=== PATIENT | female | born 1970 | race Caucasian/White ===

== ENCOUNTER → 2017-05-02 | Outpatient (CLI) | payer BC | LOC: LABWHC1 17:14 | PROVIDERS: ATTEND Internal Medicine Endocrinology, Diabetes & Metabolism | DX: E03.8 Other specified hypothyroidism (principal) | CPT/HCPCS: 36415; 84443 ==

== ENCOUNTER → 2018-02-11 | Outpatient (CLI) | payer BC ==
[2018-02-11 08:12] LABS: ALT 26 U/L (9-52); AST 23 U/L (14-36); Albumin 4.2 g/dL (3.5-5.0); Alkaline Phosphatase 57 U/L (38-126); Anion Gap 8 mmol/L; Blood Urea Nitrogen 11 mg/dL (7-17); Calcium 9.6 mg/dL (8.4-10.2); Carbon Dioxide 30 mmol/L (22-30); Chloride 101 mmol/L (98-107); Cholesterol 294 mg/dL (<200); Glucose 91 mg/dL (74-99); HDL Cholesterol 71 mg/dL (40-60); LDL Cholesterol,Calculated 200 mg/dL (0-99); Potassium 4.8 mmol/L (3.5-5.1); Sodium 139 mmol/L (137-145); Total Bilirubin 0.6 mg/dL (0.2-1.3); Total Protein 7.1 g/dL (6.3-8.2); Triglycerides 113 mg/dL (<150)
--- NOTE | 2018-02-16 10:53 | MM ---
Reason for exam: screening (asymptomatic). Last mammogram was performed 1 year and 9 months ago. History: Cyst aspiration of the right breast, 1997. Cyst aspiration of the right breast, 1996. Took hormonal contraceptives for 11 years beginning at age 24. Physical Findings: A clinical breast exam by your physician is recommended on an annual basis and results should be correlated with mammographic findings. MG 3D Screening Mammo W/Cad Bilateral CC and MLO view(s) were taken. Prior study comparison: May 01, 2016, bilateral MG 3d diag mammo w/cad BRENDA. October 04, 2015, left breast MG 3d diag mammo w/cad LT. There are scattered fibroglandular densities. There is no discrete abnormality. No significant changes when compared with prior studies. ASSESSMENT: Negative, BI-RAD 1 RECOMMENDATION: Routine screening mammogram of both breasts in 1 year.
== END | disposition home or self-care (01) ==
LOC: RADMAMWWP 07:02
PROVIDERS: ATTEND Family Medicine
DX: Z12.31 Encounter for screening mammogram for malignant neoplasm of breast (principal); E78.2 Mixed hyperlipidemia; E55.9 Vitamin D deficiency, unspecified
CPT/HCPCS: 36415; 77063; 77067; 80053; 80061; 82306

== ENCOUNTER → 2019-09-20 | Outpatient (CLI) | payer BC ==
--- NOTE | 2019-09-22 08:32 | MM ---
Reason for exam: screening (asymptomatic). Last mammogram was performed 1 year and 7 months ago. History: Cyst aspiration of the right breast, 1997. Cyst aspiration of the right breast, 1996. Took hormonal contraceptives for 11 years beginning at age 24. Physical Findings: A clinical breast exam by your physician is recommended on an annual basis and results should be correlated with mammographic findings. MG 3D Screening Mammo W/Cad Bilateral CC and MLO view(s) were taken. Prior study comparison: February 11, 2018, bilateral MG 3d screening mammo w/cad. May 01, 2016, bilateral MG 3d diag mammo w/cad BRENDA. The breast tissue is heterogeneously dense. This may lower the sensitivity of mammography. Diffuse and regional calcifications redemonstrated. No significant changes when compared with prior studies. ASSESSMENT: Benign, BI-RAD 2 RECOMMENDATION: Routine screening mammogram of both breasts in 1 year.
== END | disposition home or self-care (01) ==
LOC: RADMAMWWP 16:39
PROVIDERS: ATTEND Obstetrics & Gynecology
DX: Z12.31 Encounter for screening mammogram for malignant neoplasm of breast (principal)
CPT/HCPCS: 77063; 77067

== ENCOUNTER → 2021-05-04 | Outpatient (CLI) | payer BC ==
--- NOTE | 2021-05-04 11:17 | MM ---
Reason for exam: screening (asymptomatic). Last mammogram was performed 1 year and 7 months ago. History: Cyst aspiration of the right breast, 1997. Cyst aspiration of the right breast, 1996. Took hormonal contraceptives for 11 years beginning at age 24. Taking estrogen. Physical Findings: A clinical breast exam by your physician is recommended on an annual basis and results should be correlated with mammographic findings. MG 3D Screening Mammo W/Cad Bilateral CC and MLO view(s) were taken. Prior study comparison: September 20, 2019, bilateral MG 3d screening mammo w/cad. February 11, 2018, bilateral MG 3d screening mammo w/cad. The breast tissue is heterogeneously dense. This may lower the sensitivity of mammography. There are benign appearing round calcifications bilaterally. There is no discrete abnormality. ASSESSMENT: Benign, BI-RAD 2 RECOMMENDATION: Routine screening mammogram of both breasts in 1 year.
--- NOTE | 2021-05-07 16:38 | BD ---
EXAMINATION TYPE: Axial Bone Density DATE OF EXAM: 05/04/2021 COMPARISON: NONE CLINICAL HISTORY: 50 YR OLD FEMALE.....ICD-10 CODE: N95.1 POST MENOPAUSAL Height: 63.6 Weight: 149 FRAX RISK QUESTIONS: Family History (Parent hip fracture): NO FX Rheumatoid Arthritis: YES RISK FACTORS HISTORY OF: Family History of Osteoporosis: YES, MOTHER, NO HIP FX Postmenopausal woman: YES, AT 49 YRS OLD Take estrogen and/or progesterone medications: YES, PREMPRO NOW Hyperparathyroidism: NO Adrenal Insufficiency: NO MEDICATIONS: Prednisone or other steroids: ZYRTEC, ALLERGIES, FOR ABOUT 2-3 YRS Thyroid Medications: YES, TIROSINT, FOR ABOUT 15 YRS Additional Medications: BUESPAR, MEDICINAL MUSHROOMS, VIT D Additional History: IDIOPATHIC ANGIO EDEMA, LIPS, ANXIETY, RA EXAM MEASUREMENTS: Bone mineral densitometry was performed using the [employer] System. Bone mineral density as measured about the Lumbar spine is: ----- L1-L4(G/cm2): 1.376 T Score Values are as follows: ----- L1: -0.1 ----- L2: 1.8 ----- L3: 1.0 ----- L4: 3.6 ----- L1-L4: 1.6 Bone mineral density FIRST DEXA SCAN, BASELINE STUDY Bone mineral density about the R hip (g/cm2): 0.934 Bone mineral density about the L hip (g/cm2): 0.971 T Score values are as follows: -----R Neck: -0.9 -----L Neck: -0.7 -----R Total: -0.6 -----L Total: -0.3 Bone mineral density FIRST DEXA SCAN, BASELINE STUDY FRAX%s: THERE IS A 5.9% CHANCE FOR A MAJOR OSTEOPOROTIC FX AND A 0.3% FOR HIP.......PROBABILITY F OR FX IN 10 YRS TIME IMPRESSION: Normal (Values between +1 and -1 indicate normal bone mass). However, note that measurements are bord ering on osteopenia at the right hip. Consider repeating this study in 5 years or sooner if there is some new clinical indication. NOTE: T-SCORE=SD OF THE YOUNG ADULT MEAN.
[2021-05-10 16:36] LABS: Large VLDL Particle Number,NMR 1.6 nmol/L (<=2.7)
== END | disposition home or self-care (01) ==
LOC: RADMAMWWP 07:09
PROVIDERS: ATTEND Obstetrics & Gynecology
DX: Z12.31 Encounter for screening mammogram for malignant neoplasm of breast (principal); Z13.820 Encounter for screening for osteoporosis; Z78.0 Asymptomatic menopausal state
CPT/HCPCS: 77063; 77067; 77080; 83704

== ENCOUNTER → 2022-05-24 | Outpatient (CLI) | payer BC ==
--- NOTE | 2022-05-27 14:18 | MM ---
Reason for Exam: Screening (asymptomatic). Last screening mammogram was performed 12 month(s) ago. Patient History: Menarche at age 10. First Full-Term at age 19. Postmenopausal. Currently using Estrogen. Hormonal Contraceptives, starting at age 24 for 11 years. 1997, Cyst Aspiration on the Right side. 1996, Cyst Aspiration on the Right side. Risk Values: Deann 5 year model risk: 1.1%. NCI Lifetime model risk: 8.4%. Prior Study Comparison: 02/11/2018 Bilateral Screening Mammogram, [facility]. 09/20/2019 Bilateral Screening Mammogram, [facility]. 05/04/2021 Bilateral Screening Mammogram, [facility]. Tissue Density: The breast tissue is heterogeneously dense. This may lower the sensitivity of mammography. Findings: Analyzed By CAD. Regional and diffuse punctate calcifications are redemonstrated. No significant change from prior exams. Overall Assessment: Benign, BI-RAD 2 Management: Screening Mammogram of both breasts in 1 year. 1. Patient should continue monthly self breast exams. 2. A clinical breast exam by your physician is recommended on an annual basis. 3. This exam should not preclude additional follow-up of suspicious palpable abnormalities. Electronically signed and approved by: Faiza Wyatt M.D. Radiologist
== END | disposition home or self-care (01) ==
LOC: RADMAMWWP 14:47
PROVIDERS: ATTEND Obstetrics & Gynecology
DX: Z12.31 Encounter for screening mammogram for malignant neoplasm of breast (principal); Z78.0 Asymptomatic menopausal state
CPT/HCPCS: 77063; 77067

== ENCOUNTER → 2023-06-02 | Outpatient (CLI) | payer BC ==
--- NOTE | 2023-06-02 09:54 | MM ---
Reason for Exam: Screening (asymptomatic). Last mammogram was performed 1 year(s) and 1 month(s) ago. Patient History: Menarche at age 10. First Full-Term at age 19. Postmenopausal. Currently using Estrogen. Hormonal Contraceptives, starting at age 24 for 11 years. 1997, Cyst Aspiration on the Right side. 1996, Cyst Aspiration on the Right side. Risk Values: Deann 5 year model risk: 1.1%. Prior Study Comparison: 09/20/2019 Bilateral Screening Mammogram, [facility]. 05/04/2021 Bilateral Screening Mammogram, [facility]. 05/24/2022 Bilateral MG 3D screening mammo w/cad, [facility]. Tissue Density: The breast tissue is heterogeneously dense. This may lower the sensitivity of mammography. Findings: Analyzed By CAD. There is no suspicious group of microcalcifications or new suspicious mass in either breast. Overall Assessment: Benign, BI-RAD 2 Management: Screening Mammogram of both breasts in 1 year. . Patient should continue monthly self-breast exams. A clinical breast exam by your physician is recommended on an annual basis. This exam should not preclude additional follow-up of suspicious palpable abnormalities. Note on Deann scores and lifetime risk: 1. A Deann score greater than 3% is considered moderate risk. If this is the case, consider specialist referral to assess eligibility for a risk reducing agent. 2. If overall lifetime risk for the development of breast cancer is 20% or higher, the patient may qualify for future screening with alternating mammogram and breast MRI. Electronically signed and approved by: Jamari Mazariegos M.D. Radiologis
== END | disposition home or self-care (01) ==
LOC: RADMAMWWP 07:06
PROVIDERS: ATTEND Obstetrics & Gynecology
DX: Z12.31 Encounter for screening mammogram for malignant neoplasm of breast (principal); Z78.0 Asymptomatic menopausal state
CPT/HCPCS: 77063; 77067

== ENCOUNTER → 2023-06-06 | Outpatient (CLI) | payer BC ==
--- NOTE | 2023-06-06 08:40 | MR ---
EXAMINATION TYPE: MR lumbar spine wo con DATE OF EXAM: 06/06/2023 8:21 AM COMPARISON: Radiograph 05/20/2023. CLINICAL INDICATION: Female, 53 years old with history of M43.07 spondylosis; TECHNIQUE: Multi planar, multi sequence imaging was performed utilizing: T1-weighted, T2-weighted, a nd turbo inversion recovery imaging of the lumbar spine. IV Contrast: . None. FINDINGS: Alignment: The lumbar vertebral bodies have preserved heights and alignment. Cord: The conus medullaris and the distal spinal cord appear unremarkable with regards to their signa l intensity and morphology. Bones/Discs: Bone signal is within normal limits. No abnormal bony edema on inversion recovery sequen mir. Multilevel disc degenerative is noted and most pronounced at the L4-L5 with scattered osteophyte formation. Intervertebral disc signal is maintained. T12-L1: No evidence of significant spinal canal stenosis or neural foraminal stenosis. L1-L2: No evidence of significant spinal canal stenosis or neural foraminal stenosis. L2-L3: No evidence of significant spinal canal stenosis. Facet joint arthropathy mild bilateral neura l foraminal stenosis. L3-L4: Disc bulge and facet joint arthropathy result in mild spinal canal and mild bilateral neural f oraminal stenosis. L4-L5: Disc uncovering from grade 1 anterolisthesis and facet joint arthropathy with mild spinal sean l stenosis and mild bilateral neural foraminal stenosis. L5-S1: The disc is rounded posterior morphology without significant spinal canal stenosis. Facet join t arthropathy with mild neural foraminal stenosis. No significant spinal canal or neural foraminal stenosis in the remainder of the visualized levels. Other findings: None. IMPRESSION: 1. No definitive evidence of disc herniation or significant spinal canal or neural foraminal stenosi s. 2. Mild disc degeneration with associated osteoarthritic changes. 3. Grade 1 anterolisthesis of L4 and L5 without significant spinal canal or neural foraminal stenosis . No bony edema within the pars interarticularis.
== END | disposition home or self-care (01) ==
LOC: RADMRIMAIN 07:00
PROVIDERS: ATTEND Nurse Practitioner Family
DX: M47.816 Spondylosis without myelopathy or radiculopathy, lumbar region (principal); M43.16 Spondylolisthesis, lumbar region; M51.36 Other intervertebral disc degeneration, lumbar region
CPT/HCPCS: 72148

== ENCOUNTER → 2023-09-01 | Outpatient (CLI) | payer BC ==
[2023-09-01 11:22] VITALS: BP 102/70; PULSE 77; RESP 15; TEMP 97.9
--- NOTE | 2023-09-01 14:25 | P.PAINPG ---
PQRS Measure Charge Sheet Comment: HISTORY OF PRESENT ILLNESS: 53 yr old female as a referral from [facility] presents today w severe and chronic LBP x 1.5 yr secondary to DDD, spondylosis and facet arthropathy without myelopathy for evaluation. Pt states pain level is provoked at 9 /10 in intensity, constant, localized in the mid to lower lumbar spine, achy in character w shooting pain towards the BL thighs. Pt admits to R drop foot. Pain is provoked by squats. Pain is alleviated by heat & ice w little relief, topical, chiropractic visits x 2 in Jul 2023 w minimal relief, physician guided home exercises which include biking and walking daily x 2 mo, repositioning and rest. Oswestry axial pain score at 20. PMH: OA, Hypothyroidism PSH: DENIES SH: Negative x3. Post menopausal. FH: Noncontributory All: See list Meds: See list REVIEW OF ORGAN SYSTEMS: CONSTITUTIONAL: No fevers or chills. No recent weight loss. NEUROLOGICAL: + numbness and tingling along the distal extremities. No seizure disorders or headaches. MUSCULOSKELETAL: + pain PSYCHIATRIC: Denies current depression or suicidal thoughts. Physical Examinations : Constitutional : Cooperative , not in acute distress . Neurologic : Cranial nerve II to XII intact. No focal neurological deficits. Psychiatric : alert & oriented x 3. Matching mood & appropriate affect. Judgment & insight intact. Musculoskeletal : Cervical Spine Motor strength in the deltoid and biceps: Normal right side. Normal Left side Motor strength biceps and the wrist extensors: Normal right side . Normal left side Motor strength in the triceps muscle: Normal right side. Normal left side Deep tendon reflexes: Normal at the biceps. Normal at Brachioradialis. Normal at triceps Vertebral body tenderness to deep palpation over Cervical facet loading test: positive bilaterally Spurling test: positive bilaterally Neck distraction test: positive bilaterally Sara sign: positive bilaterally Lumbar spine Motor strength lower extremities ,thigh and legs 5/5 Right side , 5/5 Left side Deep tendon reflexes : Normal Knee Jerk. Normal Ankle Jerk Vertebral body tenderness over L3 Carballo Test positive over BL L3-L4 Lumbar facet Loading Test: positive Right / positive Left Range of motion of the lumbar spine Flexion 30 degrees, extension 10 degrees Straight Leg Raise test: Left/ Right positive at degree Kennedy test: positive right / positive left. Severe tenderness over the Sacroiliac joint on the Right / Left sides Gaenslen test: positive bilaterally Seated flexion test: positive bilaterally. Sacral spine : Severe tenderness over the Sacroiliac joint: right side / left side Range of motion: Flexion of the lumbar spine <60 degrees Range of motion: Extension of the lumbar spine <20 degrees Gaenslen's Test positive Ten's Test positive Kennedy test: positive right side / left side Thigh Thrust Test Sacral Thrust Test Imaging: MRI non contrast of the lumbar spine reviewed Assessment/ Plan : Lumbar DDD Recommendation of JOSE A L3-L4 #1. May need a series of injections for optimal pain relief. Risks, benefits of procedure discussed and patient verbalized understanding. Admits to anti- coagulant use or medical history of diabetes. Protocol for discontinuation/ continuation of medications nanci procedure discussed. Minimal anesthesia provided, if clinically indicated, consisting of Versed and Fentanyl. All questions answered. I have spent greater than 30 minutes on patient care today. Dr Ferrer was available by phone for the evaluation of this patient. The time was used to review the medical records including relevant urine studies and Prescription history (MAPs), review of the available imaging, evaluation and examination of the patient, coordination of care with the medical staff and if applicable referring physicians, as well as creation of the medical record Controlled Substance Measures - Controlled Substance Measures Is patient prescribed a controlled substance at discharge?: No
== END ==
LOC: PNWHC3 08:54
PROVIDERS: ATTEND Specialist
DX: M51.16 Intervertebral disc disorders with radiculopathy, lumbar region (principal); M47.26 Other spondylosis with radiculopathy, lumbar region; M43.16 Spondylolisthesis, lumbar region; M48.061 Spinal stenosis, lumbar region without neurogenic claudication; M19.90 Unspecified osteoarthritis, unspecified site; E03.9 Hypothyroidism, unspecified
CPT/HCPCS: 99202

== ENCOUNTER 2023-10-28 06:04 | Day surgery (SDC) | payer BC ==
[2023-10-21 09:53] VITALS: BMI 25.7
[2023-10-28] MEDS ORDERED: LACTATED RINGERS 1,000 ML IV SCH (06:16)
[2023-10-28 06:59] VITALS: RESP 18; TEMP 98
[2023-10-28] MEDS ORDERED: ROPIVACAINE 5MG/ML 20ML VIAL ONE (07:31)
[2023-10-28] MEDS ORDERED: methylPREDNISolone ACETATE 80 MG/ML 1 ML VIAL ONE (07:31)
[2023-10-28] MEDS ORDERED: IOPAMIDOL M200 10 ML VIAL ONE (07:31)
--- NOTE | 2023-10-28 08:04 | P.PCN ---
Description of Procedure: PREOPERATIVE DIAGNOSIS: 1- Lumbar Degenerative Disc Diseases 2-Lumbar spondylosis with Facet arthropathy without myelopathy. 3-lumbar spinal stenosis POSTOPERATIVE DIAGNOSIS: 1-lumbar degenerative disc disease. 2-lumbar spondylosis with facet arthropathy without myelopathy. 3-lumbar spinal stenosis. PROCEDURE Injection of radial contrast material into L45 interspace, interpretation of epidurogram, injection of steroid at L4 5 epidural space under fluoroscopic guidance. ANESTHESIA: Lidocaine 1% subcutaneously. In OR continuous pulse ox, EKG, blood pressure and volleyball complication was maintained with the patient. EBL: Minimal PROCEDURE INDICATION: Before the procedure were discussed with the patient deta iled procedure, alternatives, complications including infection, bleeding, nerve damage, paralysis all of which could be permanent. Patient understands and all questions were answered. PROCEDURE DESCRIPTION : After getting consent, patient in OR in prone position. Back was prepped with chlorhexidine and draped in sterile fashion. After injecting 10 mL of 1% lidocaine subcutaneously, a 20-gauge Tuohy needle was introduced at L4 5 interspace with loss of resistance technique using a syringe filled with air. Negative CSF, negative blood, negative paresthesia. Needle position was confirmed with AP and lateral view of the fluoroscope. After repeat negative aspiration 2 mL of Omnipaque 200 water soluble contrast was injected. Contrast was noted in the epidural space. No contrast was noted into intrathecal or intravascular space. After repeat negative aspiration 6 mL solution was injected intermittently which consists of 5 mL of preservative-free normal saline mixed with 1 mL of 80 mg Depo-Medrol. Needle was withdrawn intact. Skin was cleansed and Band-Aids was applied. DISPOSITION / PLANS: The patient tolerated the procedure well. No complication. The patient was placed in a supine position and transferred to the recovery area in a stable condition for observation. There was no evidence of lower extremity motor or sensory deficit after the procedure. Patient was discharged from the recovery room after meeting discharge criteria. Home discharge instructions were given to the patient by the staff. The patient was reexamined prior to discharge. The patient will schedule a follow up in the clinic in 2-4 weeks.
--- NOTE | 2023-10-28 08:16 | FL ---
Fluoroscopy History: BACK PAIN 10 SEC [place] .[id number] DAP DOSE
[2023-10-28 08:30] VITALS: BP 116/68; PULSE 74
== END 2023-10-28 08:16 | disposition home or self-care (01) ==
LOC: ORPAIN 06:04
PROVIDERS: ATTEND Pain Medicine Interventional Pain Medicine
DX: M47.816 Spondylosis without myelopathy or radiculopathy, lumbar region (principal); M48.061 Spinal stenosis, lumbar region without neurogenic claudication; M51.36 Other intervertebral disc degeneration, lumbar region; Z88.5 Allergy status to narcotic agent; Z88.6 Allergy status to analgesic agent
CPT/HCPCS: 62323; J1040; Q9966; J2795

== ENCOUNTER → 2023-11-17 | Outpatient (CLI) | payer BC ==
--- NOTE | 2023-11-17 14:46 | P.PAINPG ---
Objective - Vital Signs Vital signs: Intake & Output 11/16/23 11/17/23 11/17/23 18:59 06:59 18:59 Weight 67.132 kg PQRS Measure Charge Sheet Comment: HISTORY OF PRESENT ILLNESS: 53 yr old female presents today w severe and chronic LBP x 1.5 yr secondary to DDD, spondylosis and facet arthropathy without myelopathy for evaluation s/p JOSE A L4-L5 #1. Pt states she experienced 100% pain relief x 2-3 wks s/p procedure. Pt states pain level is provoked at 6 /10 in intensity, constant, localized in the mid to lower lumbar spine, predominantly axial, achy in character w occasional shooting pain towards the BL thighs. Pt still admits to R drop foot. Pain is provoked by squats. Pain is alleviated by heat & ice w little relief, topical, chiropractic visits x 2 in Jul 2023 w minimal relief, physician guided home exercises which include biking and walking daily x 4 mo, repositioning and rest. Oswestry axial pain score at 19. Interventional procedures include JOSE A L4-L5 x1 Medications inc stephanleslie DENIES REVIEW OF ORGAN SYSTEMS: CONSTITUTIONAL: No fevers or chills. No recent weight loss. NEUROLOGICAL: + numbness and tingling along the distal extremities. No seizure disorders or headaches. MUSCULOSKELETAL: + pain PSYCHIATRIC: Denies current depression or suicidal thoughts. Physical Examinations : Constitutional : Cooperative , not in acute distress . Neurologic : Cranial nerve II to XII intact. No focal neurological deficits. Psychiatric : alert & oriented x 3. Matching mood & appropriate affect. Judgment & insight intact. Musculoskeletal : Cervical Spine Motor strength in the deltoid and biceps: Normal right side. Normal Left side Motor strength biceps and the wrist extensors: Normal right side . Normal left side Motor strength in the triceps muscle: Normal right side. Normal left side Deep tendon reflexes: Normal at the biceps. Normal at Brachioradialis. Normal at triceps Vertebral body tenderness to deep palpation over Cervical facet loading test: positive bilaterally Spurling test: positive bilaterally Neck distraction test: positive bilaterally Sara sign: positive bilaterally Lumbar spine Motor strength lower extremities ,thigh and legs 5/5 Right side , 5/5 Left side Deep tendon reflexes : Normal Knee Jerk. Normal Ankle Jerk Vertebral body tenderness L4 Carballo Test positive over BL L4- L5 Lumbar facet Loading Test: positive Right / positive Left Range of motion of the lumbar spine Flexion 30 degrees, extension 10 degrees Straight Leg Raise test: Left/ Right positive at degree Kennedy test: positive right / positive left. Severe tenderness over the Sacroiliac joint on the Right / Left sides Gaenslen test: positive bilaterally Seated flexion test: positive bilaterally. Sacral spine : Severe tenderness over the Sacroiliac joint: right side / left side Range of motion: Flexion of the lumbar spine <60 degrees Range of motion: Extension of the lumbar spine <20 degrees Gaenslen's Test positive Ten's Test positive Kennedy test: positive right side / left side Thigh Thrust Test Sacral Thrust Test Imaging: MRI non contrast of the lumbar spine reviewed Assessment/ Plan : Lumbar DDD Recommendation of JOSE A L4 -L5 #2. May need a series of injections for optimal pain relief. Risks, benefits of procedure discussed and patient verbalized understanding. Admits to anti- coagulant use or medical history of diabetes. Protocol for discontinuation/ continuation of medications nanci procedure discussed. All questions answered. I have spent greater than 30 minutes on patient care today. Dr Ferrer was available by phone for the evaluation of this patient. The time was used to review the medical records including relevant urine studies and Prescription history (MAPs), review of the available imaging, evaluation and examination of the patient, coordination of care with the medical staff and if applicable referring physicians, as well as creation of the medical record PQRS Narrative: Hx Alcohol Use (MH) No Home Medications: Ambulatory Orders Cetirizine HCl [Zyrtec] 10 mg PO HS 10/21/23 Estrogen,Con/M-Progest Acet [Prempro 0.625-5 mg Tablet] 1 each PO DAILY 10/21/23 Levothyroxine Sodium [Tirosint] 88 mcg PO DAILY 10/21/23 busPIRone HCl [Buspar] 5 mg PO BID 10/21/23 Controlled Substance Measures - Controlled Substance Measures Is patient prescribed a controlled substance at discharge?: No
[2023-11-17 14:51] VITALS: BP 128/68; PULSE 89; RESP 15; TEMP 98.6
== END ==
LOC: PNWHC3 14:11
PROVIDERS: ATTEND Specialist
DX: M51.36 Other intervertebral disc degeneration, lumbar region (principal); F12.90 Cannabis use, unspecified, uncomplicated; Z91.018 Allergy to other foods; Z88.5 Allergy status to narcotic agent; Z88.1 Allergy status to other antibiotic agents; Z88.6 Allergy status to analgesic agent
CPT/HCPCS: 99211

== ENCOUNTER 2023-11-25 07:28 | Day surgery (SDC) | payer BC ==
[2023-11-25] MEDS ORDERED: LACTATED RINGERS 1,000 ML IV SCH (07:42)
[2023-11-25 08:16] VITALS: RESP 16; TEMP 97
[2023-11-25] MEDS ORDERED: methylPREDNISolone ACETATE 80 MG/ML 1 ML VIAL ONE (08:27)
[2023-11-25] MEDS ORDERED: ROPIVACAINE 5MG/ML 20ML VIAL ONE (08:27)
[2023-11-25] MEDS ORDERED: IOPAMIDOL M200 10 ML VIAL ONE (08:27)
--- NOTE | 2023-11-25 08:46 | P.PCN ---
Description of Procedure: PREOPERATIVE DIAGNOSIS: 1- Lumbar Degenerative Disc Diseases 2-Lumbar spondylosis with Facet arthropathy without myelopathy. 3-lumbar spinal stenosis POSTOPERATIVE DIAGNOSIS: 1-lumbar degenerative disc disease. 2-lumbar spondylosis with facet arthropathy without myelopathy. 3-lumbar spinal stenosis. PROCEDURE Injection of radio contrast material into L45 interspace, interpretation of epidurogram, injection of steroid at L4 5 epidural space under fluoroscopic guidance. ANESTHESIA: Lidocaine 1% subcutaneously. In OR continuous pulse ox, EKG, blood pressure and volleyball complication was maintained with the patient. EBL: Minimal PROCEDURE INDICATION: Before the procedure were discussed with the patient detai led procedure, alternatives, complications including infection, bleeding, nerve damage, paralysis all of which could be permanent. Patient understands and all questions were answered. PROCEDURE DESCRIPTION : After getting consent, patient in OR in prone position. Back was prepped with chlorhexidine and draped in sterile fashion. After injecting 10 mL of 1% lidocaine subcutaneously, a 20-gauge Tuohy needle was introduced at L4 5 interspace with loss of resistance technique using a syringe filled with air. Negative CSF, negative blood, negative paresthesia. Needle position was confirmed with AP and lateral view of the fluoroscope. After repeat negative aspiration 2 mL of Omnipaque 200 water soluble contrast was injected. Contrast was noted in the epidural space. No contrast was noted into intrathecal or intravascular space. After repeat negative aspiration 6 mL solution was injected intermittently which consists of 5 mL of preservative-free normal saline mixed with 1 mL of 80 mg Depo-Medrol. Needle was withdrawn intact. Skin was cleansed and Band-Aids was applied. DISPOSITION / PLANS: The patient tolerated the procedure well. No complication. The patient was placed in a supine position and transferred to the recovery area in a stable condition for observation. There was no evidence of lower extremity motor or sensory deficit after the procedure. Patient was discharged from the recovery room after meeting discharge criteria. Home discharge instructions were given to the patient by the staff. The patient was reexamined prior to discharge. The patient will schedule a follow up in the clinic in 2-4 weeks.
--- NOTE | 2023-11-25 08:57 | FL ---
EXAMINATION TYPE: FL guided pain mgmt statistic Intraoperative/procedural fluoroscopic services were provided. Total fluoroscopy time is 12 point seconds with a total of 3 submitted images to PACS. Plea se see the operative/procedural note for further details. DAP: [id number] [id number]
[2023-11-25 09:06] VITALS: BP 100/53; PULSE 80
== END 2023-11-25 08:59 | disposition home or self-care (01) ==
LOC: ORPAIN 07:28
PROVIDERS: ATTEND Pain Medicine Interventional Pain Medicine
DX: M51.36 Other intervertebral disc degeneration, lumbar region (principal); M47.816 Spondylosis without myelopathy or radiculopathy, lumbar region; M48.061 Spinal stenosis, lumbar region without neurogenic claudication; Z88.5 Allergy status to narcotic agent; Z88.6 Allergy status to analgesic agent
CPT/HCPCS: 62323; J1040; Q9966; J2795

== ENCOUNTER → 2024-02-25 | Outpatient (CLI) | payer BC ==
[2024-02-25 12:11] VITALS: BP 108/74; PULSE 73; RESP 15; TEMP 98.5
--- NOTE | 2024-02-25 14:38 | P.PAINPG ---
PQRS Measure Charge Sheet Comment: HISTORY OF PRESENT ILLNESS: 53 yr old female presents today w severe and chronic LBP x 1.5 yr secondary to DDD, spondylosis and facet arthropathy without myelopathy for evaluation s/p JOSE A L4-L5 #2. Pt states she experienced 95 % pain relief x 2.5 wks s/p procedure. Pt states pain level is provoked at 6 /10 in intensity, constant, localized in the mid to lower lumbar spine, predominantly axial, achy in character w occasional shooting pain towards the BL thighs. Pt still admits to R drop foot. Pain is provoked by squats. Pain is alleviated by heat & ice w little relief, topical, chiropractic visits x 2 in Jul 2023 w minimal relief, physician guided home exercises which include biking and walking daily since Jul 2023, repositioning and rest. Oswestry axial pain score at 22. Interventional procedures include JOSE A L4-L5 x2 Medications inc amy DENIES REVIEW OF ORGAN SYSTEMS: CONSTITUTIONAL: No fevers or chills. No recent weight loss. NEUROLOGICAL: + numbness and tingling along the distal extremities. No seizure disorders or headaches. MUSCULOSKELETAL: + pain PSYCHIATRIC: Denies current depression or suicidal thoughts. Physical Examinations : Constitutional : Cooperative , not in acute distress . Neurologic : Cranial nerve II to XII intact. No focal neurological deficits. Psychiatric : alert & oriented x 3. Matching mood & appropriate affect. Judgment & insight intact. Musculoskeletal : Cervical Spine Motor strength in the deltoid and biceps: Normal right side. Normal Left side Motor strength biceps and the wrist extensors: Normal right side . Normal left side Motor strength in the triceps muscle: Normal right side. Normal left side Deep tendon reflexes: Normal at the biceps. Normal at Brachioradialis. Normal at triceps Vertebral body tenderness to deep palpation over Cervical facet loading test: positive bilaterally Spurling test: positive bilaterally Neck distraction test: positive bilaterally Sara sign: positive bilaterally Lumbar spine Motor strength lower extremities ,thigh and legs 5/5 Right side , 5/5 Left side Deep tendon reflexes : Normal Knee Jerk. Normal Ankle Jerk Vertebral body tenderness L5 Carballo Test positive over BL L5- S1 Lumbar facet Loading Test: positive Right / positive Left Range of motion of the lumbar spine Flexion 30 degrees, extension 10 degrees Straight Leg Raise test: Left/ Right positive at degree Kennedy test: positive right / positive left. Severe tenderness over the Sacroiliac joint on the Right / Left sides Gaenslen test: positive bilaterally Seated flexion test: positive bilaterally. Sacral spine : Severe tenderness over the Sacroiliac joint: right side / left side Range of motion: Flexion of the lumbar spine <60 degrees Range of motion: Extension of the lumbar spine <20 degrees Gaenslen's Test positive Ten's Test positive Kennedy test: positive right side / left side Thigh Thrust Test Sacral Thrust Test Imaging: MRI non contrast of the lumbar spine reviewed Assessment/ Plan : Lumbar DDD Recommendation of JOSE A L5-S1 #1. May need a series of injections for optimal pain relief. Risks, benefits of procedure discussed and patient verbalized understanding. Admits to anti- coagulant use or medical history of diabetes. Protocol for discontinuation/ continuation of medications nanci procedure discussed. All questions answered. I have spent greater than 30 minutes on patient care today. Dr Ferrer was available by phone for the evaluation of this patient. The time was used to review the medical records including relevant urine studies and Prescription history (MAPs), review of the available imaging, evaluation and examination of the patient, coordination of care with the medical staff and if applicable referring physicians, as well as creation of the medical record PQRS Narrative: Hx Alcohol Use (MH) No Home Medications: Ambulatory Orders Cetirizine HCl [Zyrtec] 10 mg PO HS 10/21/23 Estrogen,Con/M-Progest Acet [Prempro 0.625-5 mg Tablet] 1 each PO DAILY 10/21/23 Levothyroxine Sodium [Tirosint] 88 mcg PO DAILY 10/21/23 busPIRone HCl [Buspar] 5 mg PO BID 10/21/23 Controlled Substance Measures - Controlled Substance Measures Is patient prescribed a controlled substance at discharge?: No
== END ==
LOC: PNWHC3 10:10
PROVIDERS: ATTEND Specialist
DX: M51.17 Intervertebral disc disorders with radiculopathy, lumbosacral region (principal); Z91.018 Allergy to other foods; Z88.5 Allergy status to narcotic agent; Z88.6 Allergy status to analgesic agent
CPT/HCPCS: 99211

== ENCOUNTER 2024-03-18 08:57 | Day surgery (SDC) | payer BC ==
[2024-03-16 11:43] VITALS: BMI 26.9
[~2024-03-18 08:57] MED LIST: LACTATED RINGERS 1,000 ML IV SCH
[2024-03-18 09:57] VITALS: RESP 18; TEMP 97.6
[2024-03-18] MEDS ORDERED: methylPREDNISolone ACETATE 80 MG/ML 1 ML VIAL ONE (10:02)
[2024-03-18] MEDS ORDERED: IOPAMIDOL M200 10 ML VIAL ONE (10:02)
--- NOTE | 2024-03-18 10:10 | P.PCN ---
Date of Procedure: 03/18/24 Procedure(s) Performed: PREOPERATIVE DIAGNOSIS: 1- Lumbar Degenerative Disc Diseases 2-Lumbar spondylosis with Facet arthropathy without myelopathy. 3-lumbar spinal stenosis POSTOPERATIVE DIAGNOSIS: 1-lumbar degenerative disc disease. 2-lumbar spondylosis with facet arthropathy without myelopathy. 3-lumbar spinal stenosis. PROCEDURE 1. Lumbar epidural steroid injection under fluoroscopic guidance at the L5-S1 level. (Fluoroscopy imaging was available in radiology department) 2. Lumbar epidurogram. ANESTHESIA: Lidocaine 1% 3 and then only. EBL: Minimal PROCEDURE INDICATION: The patient with low back pain and radiculitis symptoms unresponsive to conservative treatment. Fluoroscopy was used to optimize visualization of the needle placement and to maximize safety. PROCEDURE DESCRIPTION / TECHNIQUE: The patient was seen and identified in the preoperative area. Risks, benefits, complications including but not limited to infections ,bleeding ,allergic reaction to the medications ,nerve damage and not complete pain releife , and alternatives were discussed with the patient. The patient agreed to proceed with the procedure and signed the consent, and vital signs were stable. Patient was taken to the OR and time out was completed. The patient was placed in the prone position on procedure table and a pillow was placed under the abdomen to reduce lumbar lordosis. The lumbosacral area was prepped and draped in the usual sterile fashion.ere closely monitored during the procedure. Vital signs was monitered during the entire procedure. Using anterior-posterior fluoroscopy, the L5-S1 interlaminar space was identified and the skin over this site was marked and then infiltrated with 1% lidocaine subcutaneously. Subsequently, a 20-gauge Tuohy epidural needle was inserted and advanced toward the epidural space using the ``Loss of resistance technique and guided by AP and lateral fluoroscopy. The correct needle position in the epidural space was verified with the injection of 2 mL of the water soluble contrast dye Isovue 200 contrast and observing an excellent epidurogram with the epidural spread of the dye, after negative aspiration for blood and CSF and in the absence of paresthesias. Again after negative aspiration, a 6 ml mixture containing 80 mg of Depo-medrol ( Preservetive Free ), and 2 ml of preservative free Normal Saline, and 2 ml of preservative free lidocaine 1% solution was injected and a washout of epidurogram was seen. Needle was withdrawn intact, skin was cleansed, and bandages were applied. COMPLICATIONS: None DISPOSITION / PLANS: The patient was placed in a supine position and transferred to the recovery area in a stable condition for observation. There was no evidence of lower extremity motor or sensory deficit after the procedure. Patient was discharged from the recovery room after meeting discharge criteria. Home discharge instructions were given to the patient by the staff. The patient was reexamined prior to discharge. The patient will schedule a follow up in the clinic in 2-4 weeks.
--- NOTE | 2024-03-18 10:22 | FL ---
Fluoroscopy INDICATION: Pain FINDINGS: Fluoroscopy time: 2.3 seconds. Total dose area product (DAP) in uGy*m?, mGy*cm? (or similar): 0.77140 Images obtained: 2. IMPRESSION: 1. Documentation of fluoroscopy.
[2024-03-18 10:41] VITALS: BP 125/78; PULSE 90
== END 2024-03-18 10:27 | disposition home or self-care (01) ==
LOC: ORPAIN 08:57
PROVIDERS: ATTEND Specialist
DX: M51.16 Intervertebral disc disorders with radiculopathy, lumbar region (principal); M47.26 Other spondylosis with radiculopathy, lumbar region; M48.061 Spinal stenosis, lumbar region without neurogenic claudication; N95.0 Postmenopausal bleeding; Z88.5 Allergy status to narcotic agent; Z88.6 Allergy status to analgesic agent
CPT/HCPCS: 62323; Q9966; J1010

== ENCOUNTER → 2024-06-07 | Outpatient (CLI) | payer BC ==
--- NOTE | 2024-06-09 13:47 | MM ---
Reason for Exam: Screening (asymptomatic). Last screening mammogram was performed 12 month(s) ago. Patient History: Menarche at age 10. First Full-Term at age 19. Postmenopausal. Currently using Estrogen. Hormonal Contraceptives, starting at age 24 for 11 years. 1997, Cyst Aspiration on the Right side. 1996, Cyst Aspiration on the Right side. Risk Values: Deann 5 year model risk: 1.2%. NCI Lifetime model risk: 8.1%. Prior Study Comparison: 05/04/2021 Bilateral Screening Mammogram, LOCATED WITHIN [facility]. 05/24/2022 Bilateral MG 3D screening mammo w/cad, [facility]. 06/02/2023 Bilateral MG 3D screening mammo w/cad, LOC[facility]. Tissue Density: The breasts are heterogeneously dense, which may obscure small masses. Findings: Analyzed By CAD. Right breast: There is no suspicious group of microcalcifications or new suspicious mass. Left breast: Focal asymmetry MLO view anterior depth 3.0 cm the nipple slightly inferior. This may be posterior on CC view 8.4 cm from the nipple. Spot compression imaging with 3-D imaging recommended. Overall Assessment: Incomplete: need additional imaging evaluation, BI-RAD 0 Management: Diagnostic Mammogram of the left breast. [facility] will attempt to contact patient to return for supplemental views and ultrasound if indicated. Patient should continue monthly self-breast exams. A clinical breast exam by your physician is recommended on an annual basis. This exam should not preclude additional follow-up of suspicious palpable abnormalities. Note on Deann scores and lifetime risk: 1. A Deann score greater than 3% is considered moderate risk. If this is the case, consider specialist referral to assess eligibility for a risk reducing agent. 2. If overall lifetime risk for the development of breast cancer is 20% or higher, the patient may qualify for future screening with alternating mammogram and breast MRI. Electronically signed and approved by: Carlos Vieira DO
== END | disposition home or self-care (01) ==
LOC: RADMAMWWP 11:21
PROVIDERS: ATTEND Obstetrics & Gynecology
DX: Z12.31 Encounter for screening mammogram for malignant neoplasm of breast (principal); Z78.0 Asymptomatic menopausal state
CPT/HCPCS: 77063; 77067

== ENCOUNTER → 2024-06-11 | Outpatient (CLI) | payer BC ==
--- NOTE | 2024-06-14 08:31 | MM ---
Reason for Exam: Additional evaluation requested from abnormal screening. Last screening mammogram was performed less than 1 month ago. Patient History: Menarche at age 10. First Full-Term at age 19. Postmenopausal. Currently using Estrogen. Hormonal Contraceptives, starting at age 24 for 11 years. 1997, Cyst Aspiration on the Right side. 1996, Cyst Aspiration on the Right side. Risk Values: Deann 5 year model risk: 1.2%. NCI Lifetime model risk: 8.1%. Prior Study Comparison: 05/24/2022 Bilateral MG 3D screening mammo w/cad, [facility]. 06/02/2023 Bilateral MG 3D screening mammo w/cad, [facility]. 06/07/2024 Bilateral MG 3D screening mammo w/cad, [facility]. Tissue Density: Left: The breasts are heterogeneously dense, which may obscure small masses. Findings: Analyzed By CAD. The pattern is symmetrical. Scattered benign round calcifications are present bilaterally. No significant interval change evident. No suspicious groups of microcalcifications, spiculated or lobular masses, architectural distortion or other secondary signs of malignancy are mammographically apparent. Overall Assessment: Benign, BI-RAD 2 Management: Screening Mammogram of both breasts in 1 year. A negative mammogram report should not preclude additional follow up of suspicious palpable abnormalities. Patient should continue monthly self breast exam. A clinical breast exam by your physician is recommended on an annual basis and results should be correlated with mammographic findings. Note on Deann scores and lifetime risk: 1. A Deann score greater than 3% is considered moderate risk. If this is the case, consider specialist referral to assess eligibility for a risk reducing agent. 2. If overall lifetime risk for the development of breast cancer is 20% or higher, the patient may qualify for future screening with alternating mammogram and breast MRI. Electronically signed and approved by: Reji Boucher D.O. Radiologis
== END | disposition home or self-care (01) ==
LOC: RADMAMWWP 13:24
PROVIDERS: ATTEND Obstetrics & Gynecology
DX: R92.332 Mammographic heterogeneous density, left breast (principal); R92.8 Other abnormal and inconclusive findings on diagnostic imaging of breast; R92.1 Mammographic calcification found on diagnostic imaging of breast; Z78.0 Asymptomatic menopausal state
CPT/HCPCS: 77061; 77065

== ENCOUNTER → 2024-10-22 | Outpatient (CLI) | payer BC | END | disposition home or self-care (01) | LOC: LABPAT 09:10 | PROVIDERS: ATTEND Orthopaedic Surgery | DX: Z01.812 Encounter for preprocedural laboratory examination (principal); M43.16 Spondylolisthesis, lumbar region | CPT/HCPCS: 86850; 86900; 86901; 87070 ==

== ENCOUNTER 2024-10-29 07:51 | Day surgery (SDC) | payer BC ==
[2024-10-25 15:45] VITALS: BMI 26.6
--- NOTE | 2024-10-29 07:22 | P.HPOR ---
History of Present Illness H&P Date: 10/22/24 .D:Date: 10/22/24 : 01:32pm .T:Title: *[facility] [address] [place] [id number]| PROVIDER: DARRELL LOPEZ DO CLINICAL SUMMARY: *Ms. Hawkins is a 54-year-old female presenting for a pre-operative appointment for a planned L4-S1 minimally invasive spinal fusion. She reports severe lumbar pain (VAS 7) radiating to both lower extremities, accompanied by numbness and tingling. Several butt findings support the surgical intervention. Conservative treatments have failed, including physical therapy, medications, epidural steroid injections, and alternative therapies. Imaging demonstrates unstable Grade 1 spondylolisthesis at L4-5 and L5-S1 with severe foraminal stenosis and degenerative changes. Physical examination reveals bilateral lower extremity weakness (4/5 strength), positive straight leg raise, and restricted lumbar range of motion. The surgical plan involves L4-S1 minimally invasive posterolateral and interbody fusion with decompressive laminectomy. Prior to surgery, the patient will obtain surgical clearance, complete preoperative labs, and undergo a CT scan for surgical planning. DEMOGRAPHICS: Age: 54 year Height: 5'4" Weight: 150 lbs BP:/ BMI: 25.75 kg/m2 Occupation: *Retired CC: *Lumbar pain VAS: * 7 HISTORY: Ms. Hawkins presents to the office today, 10/22/24, for a pre-operative appointment preceding her L4-5 PLIBF. Patient continues to report a sharp lumbar pain that radiates into the groin and bilateral lower extremities. She notes numbness and tingling throughout the lower extremities. Patient states her pain is increased with walking, sit to stand, and stairs. Patient reports that her pain has become so severe that she is no longer able to perform her activities of daily living. She is also having night time symptoms related to her lumbar spine that wake her up. She has previously trialed physical therapy with worsening of her symptoms. [id number] denies any f/c/sob/cp, perineal numbness or tingling, bowel, or bladder incontinence/retention. Patient is ambulatory P1 The patients past social, medical, family, surgical history, as well as review of systems, have been reviewed. Please refer to the History and Physical form that has been scanned into our electronic medical record system. R0 16 points review of systems completed and as stated in HPI, all other systems reviewed are negative. PAST TREATMENTS: PAST IMAGING: YES - TRAUMA RELATED: YES - WORK RELATED: NO - PT IN LAST 6 MONTHS: YES -LIMITED HELP PHYSICIAN DIRECTED HOME EXERCISE PROGRAM: YES - ACTIVITY MODIFICAITON: YES -LIMITED ACTIVITY LESS THAN 20LBS BLTPP MEDICATIONS: YES -MOTRIN, TYLENOL, NORCO, FLEXERIL, GABAPENTIN -MILD RELIEF ALTERNATIVE INTERVENTIONS (CHIROPRACTIC, ACCUPUNCTURE, MASSAGE, RICE): YES -CHIRO, MASSAGE, RICE -TEMP SX RELIEF BRACING: NO - INJECTIONS (JOSE A, TF, RFA): L4-5 JOSE A (mild, temporary relief) - MEDICAL HISTORY: Past Medical History: REVIEWED STATED IN CHART Past Surgical History: REVIEWED STATED IN CHART Social History: REVIEWED STATED IN CHART SMOKING: Never smoker ETOH: None SUBSTANCES: None Family History: REVIEWED STATED IN CHART P1 Current Medications: Rx: proGESTerone Ref: 0 Rx: Tirosint 88 mcg capsule Ref: 0 Instructions: take 1 capsule (88 mcg) by oral route once daily Rx: arnica Ref: 0 Rx: Fish OiL Ref: 0 Rx: Vitamin D3 Ref: 0 Rx: hydroxychloroquine 300 mg tablet Ref: 0 Instructions: take 1 tablet (300 mg) by oral route once daily Rx: sulfaSALAzine 500 mg tablet Ref: 0 Instructions: take 1 tablet (500 mg) by oral route 4 times per day after meals Rx: magnesium 100 mg (as glycinate) capsule Ref: 0 Rx: Orencia Ref: 0 P1 PHYSICAL EXAM: General: AOX3, NAD, Well hydrate, well nourished HEENT: No lumps or masses Extremities: No color changes, no pooling INTEGUMENT: Appearance: Normal color and turgor Surgical Incisions: NA Hairy Patches: ABSENT Dorsal Skin Dimples: Normal [employer] spots: ABSENT PALPATION: TTP Midline: YES Paracervical: NO Parathoracic: NO Paralumbar: YES SIJ TESTING: TESTED R/L * Geni Finger: -/- * FABER4: -/- * Compression: -/- * Distraction: -/.- * Thigh thrust: -/- * Hip thrust: -/- POSTURAL BALANCE: Coronal: BALANCED Sagittal: BALANCED Shoulder height: LEVEL Pelvic Girdle: LEVEL ROM AND APPEARANCE: Neck: UNRESTRICTED Lumbar: RESTRICTED WITH PAIN Shoulders: Symmetrical Hips: Symmetrical Knees: Symmetrical Hands: Symmetrical Feet: Symmetrical VASCULAR STATUS: PALPABLE PULSES B/L UE AND LE 2/4 RAD/ULNAR/DP/PT Edema: NONE NEUROLOGICAL EXAMINATION: Mental Status: Awake, alert, fully oriented with normal attention, concentration, and memory. Fluent appropriate speech. CRANIAL NERVES: I: Olfactory not assessed. II: Visual acuity normal, no visual field deficit noted with confrontation. III, IV: Normal pupillary reflexes & intact extraocular movements without nystagmus. V, : Intact symmetrical facial sensation. VII: Intact symmetrical facial motor movement: Hearing intact. IX, X: Intact gag, swallow, & normal voice. XI: Sternocleidomastoid, trapezius function intact. XII: Tongue midline with normal movements. TENSIONING: * L'HERMITTE'S SIG:NEG SPURLUNG'S SIGN:NEG CUBITAL TUNNEL COMPRESSION:NEG TINELS AT WRIST:NEG STRAIGH LEG RAISE:pos CONTRALATERAL STRAIGHT LEG RAISE: NEG MOTOR EXAM (0-5/5, NT) Muscle appearance: Symmetrical, without signs of atrophy or dystrophy UPPER EXTREMITY RIGHT LEFT Shoulder Abduction 5 5 Biceps 5 5 Triceps 5 5 Wrist Extension 5 5 Hand Intrinsics 5 5 Instructional Manager 5 5 LOWER EXTREMITY RIGHT LEFT Hip Flexion 4+ 4+ Knee Extension 4+ 4+ Knee Flexion 4 4+ Dorsiflexion 4 4 Plantarflexion 4 4 EHL 4 4 FHL 4 4 REFLEXES (0-4/2, NT): RIGHT LEFT Bicep 2 2 Brachioradialis 1 2 Triceps 2 1 Patellar 1 2 Achilles 1 1 PATHOLOGICAL REFLEXES: RIGHT LEFT WILLIS'S ABSENT ABSENT CLONUS ABSENT ABSENT BABINSKI ABSENT ABSENT RECTAL TONE: INTACT/NT SENSATION (0-4, NT): Sensation intact to LT and Pain * C5-T1 distribution BUE * L2-S2 distribution BLE *Exceptions below* DERMATOMAL DEFICIT/RADICULAR PATTERN: L4-S1 BL GAIT AND FUNCTIONAL EVALUATION: AMBULATORY AID NONE ROMBERG'S TEST INTACT HAND AND FINGER DEXTERITY INTACT YES DYSDIADOCHOKINESIA EXAM NEG B/L YES TOE/HEEL WALK INTACT WITH GOOD BALANCE YES SQUAT AND RISE W/O ASSISTANCE TO 60 DEG KNEE FLEXION NO SINGLE LEG STANCE NOT INTACT TRENDELENBURG NT IMAGING: XRay Lumbar Multiview (AP, Lateral, Flexion, Extension) with AP pelvis; 5 views taken at [facility] on 05/30/23: FINDINGS: UNSTABLE SPONDYLOLISTHESIS GRADE I L4-5 -SPONDYLOSIS L4-S1 WTIH DISC COLLAPSE, FACET ARTHROSIS AND FORAMINAL STENOSIS -GRADE I SPONDYLOLISTHESIS L5-S1, MARGINAL STABILITY, SEVERE DEGENERATIVE COLLAPSE -HYPERMOBILITY AT L3-4 SEGMENT -SEGMENTATION ANOMALY WITH MOBILE DISC S1-2 -NO FRACTURES OR LESIONS -PELVIS APPEARS STABLE MRI Date: 06/06/23 Location: [facility] Region: [place] Contrast: N IMAGES ARE REVIEWED WITH THE PATIENT IN OFFICE AND DEMONSTRATE THE FOLLOWING: FINDINGS: -UNSTABLE GRADE 1 SPONDYLOLISTHESIS L4-5 AND L5-S1 WITH DEGENERATIVE COLLAPSE, SPONDYLOSIS AND STENOSIS B/L FORAMINAL WELL CENTRAL LEADING TO THECAL SAC DEFORMITY. S1 B/L DISPLACEMENT DUE TO DEGENERATIVE DISC HERNIATIONS. SEVERE FORAMINAL STENOSIS L4-5 AND L5-S1 CAUSING ROOT FLATTENING. BOGGY FACETS WITH FLUID FILD FACETS. NO FRACTURES. NO LESIONS. IMPRESSION: It was my pleasure to have seen and examined Irais. I reviewed the patient's clinical syndrome, physical findings, and imaging studies during the appointment today. It is my impression that the patient has a diagnosis of. 1.L4-5 spondylolisthesis GRADE I, UNSTABLE 2.Lower extremity radiculopathy 3.L4-S1 spondylosis and stenosis 4. Low back pain PLAN: DISCUSSION: -Patient states she had trialed conservative measures and feels that they are no longer proving any substantial relief. She states she would like to pursue surgical options. I think this is reasonable. SURGICAL RECOMMENDATION -L4-S1 MINIMALLY INVASIVE POSEROLATERAL AND INTERABODY FUSION WITH DECOMPRESSIVE LAMINECTOMY THERAPIES -CONT ABLE. -Cont. with home exercises and home PT exercises as able -Cont. with Heat/Ice as warranted -Cont. with supplementation Vit D, Vit C, Ca2+, High protein diet -OK for massage or other alternative treatment modalities as able. If it exacerbates your sx do not continue ACTIVITY -Recommend walking up to 30 min 2x daily on a flat easy surface with good support. -LIMIT BLTPP 20 LBS MEDICATIONS -NO NEW TODAY -Take as directed -Cont. home medications as directed by your PCP. Check with your PCP for any medication interactions or issues if needed. Surgical Procedure Risk Review Irais Hawkins is a 54 year old female presenting for evaluation of sudden onset of a;cute low back and LE pain with weakness. It was my pleasure to have seen and examined Ms. Hawkins. In our visit today we have had a chance to go over subjective complaints, physical examination findings and treatments, including the natural course history without intervention and various interventional options. The imaging demonstrates Grade 1 spondylolisthesis L4-5 and L5-S1 with severe degenerative collapse, facet arthrosis, stenosis that is moderate to severe at both levels as well as foraminal stenosis. No fractues. . On physical exam, Ms. Hawkins demonstrates LE weakness, LE radiculopathy with tensioning in S1 roots b/l. Thereare paresthesias in b/l LE and some hyperesthesia in S1 b/l. Gait and station are altered due to pain and weakness as well as tensioning. I explained to the patient that as her condition progresses it could cause progressive pain, debility, continued neurological decline. . At this time, based on the patients imaging and physical exam, I recommend surgery in the form or a: L4-S1 MINIMALLY INVASIVE POSTEROLATERAL AND INERBODY FUSION WITH DECOMPRESSIVE LAMINECTOMY . I discussed the risk and benefits of this procedure at length with Ms. Hawkins. The patient agreed to consider pursuing the procedure mentioned above. Plan: 1. L4-S1 MINIMALLY INVASIVE POSEROLATERAL AND INTERABODY FUSION WITH DECOMPRESSIVE LAMINECTOMY 2. Follow up with PCP for surgical clearance 3. Review of surgical risks and benefits as well as an educational packet on the proposed surgical procedure. 4. PRE OP LABS CBC, BMP, EKG, CXR, PT/INR 5. SURGICAL PLANNING WITH NON CONTRASTED CT SCAN OF THE LUMBAR SPINE W/O CONTRAST. Risks: All surgical procedures come with inherent risks, including those related to positioning, anesthesia, intraoperative findings, and postoperative complications. It is important to understand that surgery does not come with any guarantee of a successful outcome as complications and adverse events are always possible. The patient was given a handout in office today discussing the surgical procedure and risks associated with the intervention, both of which were discussed with the patient. These risks include but are not limited to the following: ? Experiencing same, different or even worse symptoms in back, neck, arms, or legs compared to before surgery. ? Requiring further surgery or other forms of treatment presently or at some time in the future at same or other levels of the intended spine surgery. ? On an extreme but fortunately relatively rare basis severe complication such as blindness, stroke, heart attack, temporary and/or permanent nerve injury, paralysis, coma, or may occur, sometimes without known explanation. ? Surgical complications may include but are not limited to risk of infection, fluid accumulation in the surgical dissection site, including a seroma or hematoma, that requires additional surgery, wound drainage, bleeding, new numbness or weakness, vision changes/loss, spinal fluid leakage, non-healing and/or infected incision, headaches, difficulty or inability to swallow, hoarseness, hemopneumothorax, pneumothorax, impotence, retrograde ejaculation, vaginal dryness; injury to nerves, spinal cord, blood vessels, lymphatics or oth er vital organs (i.e., bowel injury, injury to the great vessels); heterotopic bone formation; complications related to the hardware such as screws, rods, cages including misplaced hardware, device failure, instrumentation at the wrong spine level, hardware fracture/breakage, or hardware loosening; vertebral failure of the spinal column above or below the newly placed hardware; retained surgical instrumentations or devices and the need for further surgery. ? Medical risks of the planned spine surgery include but are not limited to generalized Infections to the whole body or local areas outside of the surgical site (sepsis), heart attack, bleeding, anaphylaxis, meningitis, seizure, epilepsy, hearing loss, burn francois, laceration of the head or other areas of the body, bruising, hypersensitivity of the skin, bladder over distension; allergic reaction; shoulder injury related to positioning; fat, blood and air clots to other areas of the body like heart, lungs, brain; failure of internal organs such as lungs, kidneys, liver and excessive bleeding. If blood transfusions are necessary, note that transfusions may cause intolerance reactions such as anaphylaxis or other complex reactions. Despite best efforts, the results of spine surgery might not heal in terms of bone, soft tissues such as skin, fascia, ligaments, and joints. Additionally, in order to achieve best possible results, spine surgery may be carried out beyond the initially planned levels and involve decompression, fusion including insertion of hardware at levels other than the original intended area of s urgical interest change some portions of the procedure in order to ensure the best possible outcomes. With spine surgery and spinal fusion, there are different off label uses of instrumentation (devices, implants and hardware) as well as biological substances (bone morphogenic proteins, demineralized bone matrix) as well as using extra bone from allograft sources (i.e. cadaver bone) or autograft (iliac crest bone, ribs, or the spine itself). The patient has been given information about these practices and their inherent risks and benefits. [facility] Physician Assistants are medically trained surgical providers who function in the outpatient, inpatient, and operating room setting under the direct supervision of the attending surgeon.They assist in the operating room with direct supervision of the attending surgeons. The patient has had a chance to review all the listed information, has been given print outs detailing this information, and has had all his/her questions answered to their satisfaction. It was my pleasure to have seen and examined Ms. Hawkins. In our visit today we have had a chance to go over my understanding of our patient's current condition, the natural course history without intervention and various interventional options. Questions were invited and answered, and the patient wishes to proceed as outlined above. I have seen and examined the patient for 25 minutes and we have spent more than 50% of the time in repeat and detailed counseling about the patient's condition, its natural course history with out and as much as can be predicted with surgery and re-review of various surgical treatment options. In conclusion,Ms. Hawkins and her spouse/partner requested we proceed with the above suggested surgery and are willing to accept risks and limitations of the suggested surgery as nature of the disease process and our best attempts at treatment for the condition. SURGICAL CODING AND AUTHORIZATION RATIONALE PATIENT: Irais Hawkins DATE: September 17, 2024 PROVIDER: Darrell Lopez DO CLINICAL PRESENTATION AND HISTORY * 54-year-old female with progressive lumbar pain Failed conservative management including: * Physical therapy (with worsening symptoms) JOSE A injection at L4-5 with only mild temporary relief Multiple medications (NSAIDs, opioids, muscle relaxants, gabapentin) foster care case manager and massage therapy Home exercise program Activity modifications * Progressive symptoms include: * Bilateral lower extremity weakness (4/5 strength) Radicular symptoms in L4-S1 distribution Positive straight leg raise Inability to perform ADLs Night symptoms disrupting sleep Unable to squat and rise Abnormal single leg stance IMAGING FINDINGS * MRI (06/06/23): L4-5: Unstable Grade 1 spondylolisthesis with degenerative collapse L5-S1: Grade 1 spondylolisthesis Bilateral foraminal and central stenosis with thecal sac deformity S1 nerve root displacement Severe foraminal stenosis with root flattening Fluid-filled facets indicating instability X-rays (05/30/23): Confirms unstable Grade 1 spondylolisthesis at L4-5 Grade 1 spondylolisthesis L5-S1 with marginal stability Hypermobility at L3-4 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 PLANNED PROCEDURE L4-S1 Minimally Invasive Posterolateral and Interbody Fusion with Decompressive Laminectomy PRIMARY DIAGNOSIS CODES (ICD-10) * M43.16: Spondylolisthesis, lumbar region M48.06: Spinal stenosis, lumbar region M54.16: Radiculopathy, lumbar region M51.36: Other intervertebral disc degeneration, lumbar region M54.5: Low back pain M62.81: Muscle weakness PROCEDURE CODES (CPT) WITH RATIONALE * 32568 - Primary lumbar interbody fusion L4-L5 Justified by unstable grade 1 spondylolisthesis with severe stenosis at L4-L5 66241 - Secondary lumbar interbody fusion L5-S1 Justified by grade 1 spondylolisthesis and stenosis at L5-S1 37284 - Posterior segmental instrumentation (3-6 segments) Required for stabilization of multilevel fusion construct 46042/[id number] - Decompressive laminectomy with facetectomy and foraminotomy Justified by severe central and foraminal stenosis at multiple levels Required for neural decompression and cage placement 87492 x2 - Insertion of interbody biomechanical devices Required for placement of interbody cages at L4-5 and L5-S1 50934 - Stereotactic computer-assisted (navigational) procedure * Required for precise screw placement due to: * Multiple level pathology Presence of instability at multiple segments Complex anatomy with segmentation anomaly Need for accurate instrumentation in minimally invasive approach MEDICAL NECESSITY RATIONALE * Progressive neurological deficit with documented: Bilateral lower extremity weakness (4/5 strength) Positive straight leg raise Radicular symptoms in L4-S1 distribution Failed conservative management including: JOSE A injection with only temporary relief Physical therapy with worsening symptoms Medication management foster care case manager Activity modification Radiographic evidence of: Multiple level instability Grade 1 spondylolisthesis at L4-5 and L5-S1 Severe foraminal stenosis with nerve root compression Fluid-filled facets indicating instability Functional decline: Unable to perform ADLs Disrupted sleep due to symptoms Unable to squat and rise Abnormal single leg stance Limited walking tolerance Progressive symptoms despite maximal conservative therapy RISK FACTORS * Active rheumatologic condition on multiple medications (hydroxychloroquine, sulfasalazine, Orencia) Multiple level pathology requiring complex surgical approach History of trauma 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 Hawkins and I have had a chance to go over my understanding of the patient's current condition, the natural course history without intervention and various interventional options. Questions were invited and answered, and the patient wishes to proceed as outlined above. I will be sure to keep you updated after Ms. Hawkins returns here for further follow-up. Thank you again for your referral. Please do not hesitate to contact me if you have any further questions. Signed and authenticated by: Darrell Damon [facility] [address] [id number] . This message is confidential, intended only for the named recipient(s) and may contain information that is privileged or exempt from disclosure under applicable law. If you are not the intended recipient(s), you are notified that the dissemination, distribution or copying of this information is prohibited. If you received this message in error, please notify the sender then delete this message. Past Medical History Past Medical History: Rheumatoid Arthritis (RA), Thyroid Disorder Additional Past Medical History / Comment(s): MIGRAINES. History of Any Multi-Drug Resistant Organisms: None Reported Past Surgical History: Uterine Ablation Additional Past Surgical History / Comment(s): BILATERAL EYELID SURGERY, LAPAROSCOPY WITH CYST REMOVED, PAIN CLINIC PROCEDURE. Past Anesthesia/Blood Transfusion Reactions: No Reported Reaction Smoking Status: Former smoker - Past Family History Father Family Medical History: Cancer Medications and Allergies Home Medications Medication Instructions Recorded Confirmed Type Abatacept [Orencia Clickject] 125 mg SQ FR 10/25/24 10/25/24 History Levothyroxine Sodium [Tirosint] 100 mcg PO DAILY 10/25/24 10/25/24 History Progesterone, Micronized 200 mg PO HS 10/25/24 10/25/24 History [Progesterone] estradioL 2 mg PO HS 10/25/24 10/25/24 History Allergies Allergy/AdvReac Type Severity Reaction Status Date / Time acetaminophen [From Vicodin] Allergy Anaphylaxis Verified 10/25/24 15:31 gluten Allergy FACIAL Verified 10/25/24 15:31 SWELLING hydrocodone [From Vicodin] Allergy Anaphylaxis Verified 10/25/24 15:31 ibuprofen Allergy FACIAL Verified 10/25/24 15:31 SWELLING CHLORINE BLEACH Allergy Swelling Uncoded 10/25/24 15:32 Physical Examination Osteopathic Statement: *. No significant issues noted on an osteopathic structural exam other than those noted in the History and Physical/Consult.
[~2024-10-29 07:51] MED LIST changes: +HYDROmorphone 0.5 MG/0.5 ML SYRINGE IVP PRN; -LACTATED RINGERS 1,000 ML IV SCH; +LIDOCAINE 1% (10MG/ML) FOR IV START INTRADERMA PRN; +TRANEXAMIC 1,000 MG/100ML-NACL 1,000 MG in SALINE 1 100ML.BAG IVPB PRN; +fentaNYL (PF) 50 MCG/ML 2 ML AMP IVP PRN
[2024-10-29] MEDS: LACTATED RINGERS 1,000 ML IV SCH (08:47)
[2024-10-29] MEDS: ONDANSETRON 4 MG/2 ML VIAL IVP ONE (08:48)
[2024-10-29] MEDS: DEXAMETHASONE SOD PHOSPHATE 4 MG/ML 1 ML VIAL IV ONE (08:49)
[2024-10-29] MEDS: ONDANSETRON 4 MG/2 ML VIAL IVP PRN ×2 (08:49→16:31)
[2024-10-29] MEDS: LACTATED RINGERS 1,000 ML IV ONE ×2 (08:52→13:52)
[2024-10-29] MEDS: IV FLUID CONTINUATION 1,000 ML IV ONE (08:52)
[2024-10-29] MEDS: GABAPENTIN 300 MG CAP PO PRN (09:02)
[2024-10-29] MEDS: MIDAZOLAM 2 MG/2 ML VIAL IV PRN (09:13)
[2024-10-29] MEDS ORDERED: fentaNYL (PF) 50 MCG/ML 2 ML AMP ONE (10:17)
[2024-10-29] MEDS ORDERED: LIDOCAINE 1% INJ 10MG/ML (20 ML MDV) ONE (10:17)
[2024-10-29] MEDS ORDERED: PROPOFOL 10 MG/ML 20 ML VIAL IV ONE (10:17)
[2024-10-29] MEDS ORDERED: MIDAZOLAM 2 MG/2 ML VIAL ONE (10:17)
[2024-10-29] MEDS ORDERED: PHENYLEPHRINE 10 MG/ML VIAL ONE (10:17)
[2024-10-29] MEDS ORDERED: SUCCINYLCHOLINE CHLORIDE 200 MG/10 ML VIAL IV ONE (10:17)
[2024-10-29] MEDS ORDERED: KETAMINE HCL IN 0.9 % NACL 50 MG/5 ML SYRINGE ONE (10:17)
[2024-10-29] MEDS ORDERED: TRANEXAMIC 1,000 MG/100ML-NACL PREMIX BAG ONE (10:17)
[2024-10-29] MEDS: THROMBIN (BOVINE) 5,000 UNIT VIAL TOPICAL ONE (10:49)
[2024-10-29] MEDS: BUPIVACAINE (PF) 0.5% 30 ML VIAL SQ ONE (13:38)
[2024-10-29] MEDS: LIDOCAINE 2%-EPI 1:100,000 20 ML VIAL SQ ONE (13:38)
[2024-10-29] MEDS ORDERED: HYDROmorphone 0.5 MG/0.5 ML SYRINGE IVP PRN (14:07)
[2024-10-29] MEDS ORDERED: MAGNESIUM HYDROXIDE 2,400 MG/30 ML CUP PO PRN (14:07)
[2024-10-29] MEDS ORDERED: MAG HYDROX/AL HYDROX/SIMETH 30 ML CUP PO PRN (14:07)
[2024-10-29] MEDS ORDERED: SENNOSIDES-DOCUSATE SODIUM 1 EACH TAB PO PRN (14:07)
[2024-10-29] MEDS ORDERED: HYDROmorphone 1 MG/ML 1 ML SYRINGE IVP PRN (14:07)
--- NOTE | 2024-10-29 14:09 | XR ---
Intraoperative/procedural fluoroscopic services were provided for L4-S1 posterior lumbar disc fusion. Total fluoroscopy time is 1.25 minutes with a total of 2 submitted images to PACS document folder. T otal DAP 1277.25 cGycm2. Please see the operative note for further details. [facility], , 10/29/2024 2:07 PM
--- NOTE | 2024-10-29 14:22 | P.OP ---
Date of Procedure: 10/29/24 Preoperative Diagnosis: 1. 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 L4-S1 SPONDYLOSIS WITH RADICULOPATHY AND MYELOPATHY 3. LOW BACK PAIN, SEVERE 4. FACET ARTHROSIS, SEVERE L4-S1 5. LE WEAKNESS 6. LE PARESTHESIAS Postoperative Diagnosis: 1. 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 L4-S1 SPONDYLOSIS WITH RADICULOPATHY AND MYELOPATHY 3. LOW BACK PAIN, SEVERE 4. FACET ARTHROSIS, SEVERE L4-S1 5. LE WEAKNESS 6. LE PARESTHESIAS Procedure(s) Performed: 1. L4-5 POSTEROLATERAL AND INTERBODY FUSION (07169) 2. L5-S1 POSTEROLATERAL AND INTERBODY FUSION (16429) 3. SEGMENTAL INSTRUMENTATION L4-S1 (92022) 4. L4-5, L5-S1 LAMINECTOMY, FACETECTOMY AND FORAMINOTOMY FOR NEURAL DECOMPRESSION AND CAGE PLACEMENT (32347, 89710) 5. INSERTION OF BIOMECHANICAL DEVICES, CAGES L4-5, L5-S1 ([id number]) 6. USE OF GlobaTrek NAVIGATION FOR THE ASSISTANCE WITH ACCURATE SCREW PLACEMENT (70923) USE OF IONM SCREWS TESTING > 20mA USE OF IO MICROSCOPE Implants: -JODEE EVEREST RODS AND SCREWS -GLOBUS SABLE CAGES 10MM 109-16 AND 10-17MM 15 DEG -AUTOGRAFT, ALLOGRAFT, DBM, ARTHROCELL, ALLOCELL, CONTOUR, MAGNATOS Anesthesia: GETA Surgeon: Clark Kennedy Manager Transfusion #1: Thor Wagner (WAS PRESENT AND ASSISTED WITH ALL ASPECTS OF THE CASE FROM POSITIONING TO DRESSING PLACEMENT) Estimated Blood Loss (ml): 150 IV fluids (ml): 1,500 Urine output (ml): 350 Pathology: none sent Condition: stable Disposition: PACU Indications for Procedure: Ms. Hawkins is a 54-year-old female presenting for a pre-operative appointment for a planned L4-S1 minimally invasive spinal fusion. She reports severe lumbar pain (VAS 7) radiating to both lower extremities, accompanied by numbness and tingling. Several butt findings support the surgical intervention. Conservative treatments have failed, including physical therapy, medications, epidural steroid injections, and alternative therapies. Imaging demonstrates unstable Grade 1 spondylolisthesis at L4-5 and L5-S1 with severe foraminal stenosis and degenerative changes. Physical examination reveals bilateral lower extremity weakness (4/5 strength), positive straight leg raise, and restricted lumbar range of motion. The surgical plan involves L4-S1 minimally invasive posterolateral and interbody fusion with decompressive laminectomy. Prior to surgery, the patient will obtain surgical clearance, complete preoperative labs, and undergo a CT scan for surgical planning. Description of Procedure: L4-S1 ND POSTEROLATERAL AND INTERBODY FUSION The patient was seen and examined in the preoperative area. All preoperative protocols were followed. Informed consent was obtained, risks and benefits of the procedure were discussed at length. Risks including bleeding infection damage to the surrounding tissue and risk of reoperation were discussed with the patient. Risk of anesthesia up to and including was discussed with the patient. These are outlined in the risk review. They were willing to accept these risks and all the risks of surgery. The patient was given a weight-based dose of antibiotics in the form of 2 g Ancef. The patient was seen and evaluated by the anesthesia team who deemed them fit for surgery. The site was marked, the patient was willing to proceed with the procedure. The patient was transferred to the operative suite by the Department of anesthesia. They were then drifted off to sleep by the department anesthesia and GETA was performed. The patient tolerated this well. Robles catheter was placed by nursing staff, a-traumatically. Once confirmation of lines and ventilation the patient was transferred to a prone Nader table very carefully. All bony prominences including wrists, elbows, axilla, chest, hips, and thighs, and feet were padded very well. Special attention was paid to the genitalia, and these were padded accordingly. SCDs were placed on bilateral lower extremities and were connected. Arms were well padded and placed on arm boards up and out in the 90/90 position. Once in position, again we confirmed good ventilation capabilities and that lines were running appropriately. The patients Lumbar spine was then exposed. 1010s were placed outlining the incision site. Standard alcohol was used to clean the incision site and allowed to dry. C-arm was used to needle localize the pedicles at L4-S1 and bio-kalyani the patient and confirm level for incision which was marked with a skin marker. Operative briefing was performed with all teams and everyone in agreement to proceed. The patient was then prepped and draped in a normal sterile fashion. Timeout was then performed, and all parties agreed with the procedure to be performed. C arm was then used to target pedicles bilaterally at L4-S1. Jamshidi was used and bi-planar fluoroscopy was used to access L4 pedicles. Once accessed wires were placed in their void. This was repeated at L5 and S1 bilaterally. Skin incision was then made along these wires and on the left side, perfect scalpel was used over the wire to create a path and measure screw length at L4-S1. Screws were then placed over wires on the left side. Once the screw was at the back of the body wire was removed. The screws were confirmed to be in good position on AP and lateral. We then tested screws and they all tested above 20 mA. Attention was then turned to interbody fusion at L5-S1. The tubular retractor system was placed at the interspace of L5-S1 using a biplanar c arm. Once in position and dilated up to 26mm tube it was locked to the bed and confirmed in good position. A microscope was then brought in for visualization. Limited myomectomy was performed and laminectomy, complete facetectomy and foraminotomy performed at L5-S1 using high speed bianca and Kerrison rongeur. The ligamentum was removed and the dural sac decompressed. Exiting and traversing roots visualized and decompressed. Neural elements were then protected, and disc space accessed with an osteotome. Sequential shaving then done under lateral imaging and complete discectomy performed using dulce, pituitary and curette. Once good bleeding endplates accomplished and good height confucianist with trials, a combination of autograft, allograft and synthetic placed anterior in the disc space. The cage was then selected and impacted into place under lateral imaging. The cage was then expanded restoring height, lordosis and alignment. The cage was backfilled with bone graft through a funnel. The cigar maker was removed and the area inspected. Good cage placement, stable cage and no injuries. Area was irrigated copiously, and meticulous hemostasis achieved. The tubular retractor was then removed under direct visualization. Attention was then turned to interbody fusion at L4-5. The tubular retractor system was placed at the interspace of L4-5 using a biplanar c arm. Once in position and dilated up to 26mm tube it was locked to the bed and confirmed in good position. A microscope was then brought in for visualization. Limited myomectomy was performed and laminectomy, complete facetectomy and foraminotomy performed at L4-5 using high speed bianca and Kerrison rongeur. The ligamentum was removed and the dural sac decompressed. Exiting and traversing roots visualized and decompressed. Neural elements were then protected, and disc space accessed with an osteotome. Sequential shaving then done under lateral imaging and complete discectomy performed using dulce, pituitary and curette. Once good bleeding endplates accomplished and good height confucianist with trial s, a combination of autograft, allograft and synthetic placed anterior in the disc space. The cage was then selected and impacted into place under lateral imaging. The cage was then expanded restoring height, lordosis and alignment. The cage was backfilled with bone graft through a funnel. The cigar maker was removed and the area inspected. Good cage placement, stable cage and no injuries. Area was irrigated copiously, and meticulous hemostasis achieved. The tubular retractor was then removed under direct visualization. Screws were then selected and placed over the previously placed wires on the right side. This was done in the fashion described above. Screws were then tested, and all tested above 15 mA. Shells were then placed on the tabs. Sherwin length was then measured, and rods selected. They were then placed through the MIS tabs, subfascial. These were then locked into place with set screws and finally tightened. Sherwin holders removed and images taken showing good placement of rods, good lordosis and confucianist of height. Tabs were broken off. Wounds were then copiously irrigated with NSS. [place] used for TP decortication and mixture of MagnatOs, allograft and autograft packed posterolateral. Fascia was then closed with 0 Vircyl on a Scorpion suture passer for MIS closure. Deep subq closed with 0 Vicryl. Superficial subq closed with 2-0 Vicryl and skin with 2-0 nylon. Wound edges approximated very well. The wound was then cleaned with alcohol and dried. Wounds dressed with Optifoam dressings. The patient was then transferred off the table back to their hospital bed a- traumatically. They were extubated by the department of anesthesia. They were then transferred to PACU in stable condition having tolerated the procedure with no complications.
[2024-10-29] MEDS: MEPERIDINE 50 MG/ML SYRINGE IVP STA (14:55)
[2024-10-29] MEDS: Pre Op ABX Message 1 EACH MISC MISCELLANE ONE (16:29)
[2024-10-29] MEDS: GABAPENTIN 300 MG CAP PO SCH (16:36)
[2024-10-29] MEDS: KETOROLAC 15 MG/ML 1 ML VIAL IVP SCH (17:27)
[2024-10-29] MEDS: TRIMETHOBENZAMIDE 100 MG/ML 2 ML VIAL IM STA (23:04)
[2024-10-29] MEDS: CYCLOBENZAPRINE 5 MG TAB PO PRN (23:04)
[2024-10-30 09:38] LABS: Basophils # (A) 0.03 X 10*3/uL (0.00-0.10); Basophils % (A) 0.4 %; Eosinophils # (A) 0.01 X 10*3/uL (0.04-0.35); Eosinophils % (A) 0.1 %; HCT 33.1 % (37.2-46.3); HGB 11.2 g/dL (12.0-15.0); Lymphocytes # (A) 1.02 X 10*3/uL (0.90-5.00); Lymphocytes % (A) 12.3 %; MCH 30.1 pg (27.0-32.0); MCHC 33.8 g/dL (32.0-37.0); Mean Platelet Volume 11.2 FL (9.5-12.2); Monocytes # (A) 0.72 X 10*3/uL (0.20-1.00); Monocytes % (A) 8.7 %; NRBC Per 100 WBC 0 X 10*3/uL (0.00-0.01); Neutrophils % (A) 78.3 %; Platelet Count 221 X 10*3/uL (140-440); RBC 3.72 X 10*6/uL (4.10-5.20); RDW 13.2 % (11.5-14.5)
[2024-10-30 09:39] LABS: Blood Urea Nitrogen 6.1 mg/dL (9.0-27.0); Carbon Dioxide 23.1 mmol/L (21.6-31.8); Chloride 103 mmol/L (96-109); Glucose 112 mg/dL (70-110); Potassium 3.4 mmol/L (3.5-5.5); Sodium 137 mmol/L (135-145)
[2024-10-30] MEDS: TIROSINT 100 MCG PO SCH (10:29)
[2024-10-30] MEDS: SODIUM CHLORIDE 0.9% 1,000 ML IV SCH (10:31)
--- NOTE | 2024-10-30 11:00 | CT ---
EXAMINATION TYPE: CT lumbar spine wo con DATE OF EXAM: 10/29/2024 11:03 PM COMPARISON: 10/29/2024. CLINICAL INDICATION: Female, 54 years old with history of s/p L4-S1 MIS PLIF; PHH, s/p L4-S1 MIS PLIF TECHNIQUE: Multiple axial images were obtained from the midportion of T11 through the sacroiliac kirsten nts. Soft tissue and bone windows in coronal and sagittal planes were obtained and reviewed. Contrast used: mL of , (None, if empty). Oral contrast used: (None, if empty). CT DLP: 855.9 mGycm, Automated exposure control for dose reduction was used. FINDINGS: Postsurgical changes to the lumbar spine with fixation hardware at L4, L5 and S1. Discectom y at L4-L5 and L5-S1. Hardware limits evaluation at these levels. Hardware appears intact. No evidenc e of fracture. Postsurgical changes in the soft tissues with foci of gas present. Posterior back skin deepak are pr esent. IMPRESSION: Postsurgical changes without evidence of immediate post operative complication. [facility], , 10/30/2024 10:58 AM
--- NOTE | 2024-10-30 11:11 | P.PN ---
Subjective Progress Note Date: 10/30/24 Principal diagnosis: Status post MIS L4-S1 posterior lateral decompression and fusion Patient evaluated at bedside, is also present. She is sitting up in the chair. Pain is well-controlled. She has complete resolution of the numbness and tingling in the bilateral feet and ankles. Urinary catheter remains intact. She does have the LSO brace at bedside. Denies headaches, lightheadedness, chest pain or shortness of breath Objective - Vital Signs Vital signs: Vital Signs Temp 98.8 F 10/30/24 07:56 Pulse 86 10/30/24 07:56 Resp 18 10/30/24 07:56 BP 96/61 10/30/24 07:56 Pulse Ox 96 10/30/24 07:56 FiO2 Intake & Output 10/29/24 10/30/24 10/30/24 18:59 06:59 18:59 Intake Total 2275 Output Total 1250 1050 Balance 1025 -1050 Weight 71 kg Intake: IV 2275 Output: Urine 1100 1050 Estimated Blood Loss 150 - Exam Gen: AOx3, NAD VSS stable at this time Integument: Postop dressing in good position and condition Palpation: Mild tenderness with palpation of the lower lumbar spine ROM: Full range of motion in all major muscle groups of the bilateral upper and lower extremities Sensory Exam: Senory exam to light touch is intact C5-T1 Senosry exam to light touch is intact L2-S1 Motor: 4/5 strength appreciated the bilateral lower extremities with hip flexion, knee extension, knee flexion, plantarflexion, dorsiflexion, EHL, FHL Reflexes: 2/4 in all UE and LE Negative Sara's bilaterally Negative clonus bilaterally - Labs CBC & Chem 7: 10/30/24 02:38 10/30/24 02:38 Labs: Abnormal Lab Results - Last 24 Hours (Table) 10/30/24 10/30/24 Range/Units 02:38 02:38 RBC 3.72 L (4.10-5.20) X 10*6/uL Hgb 11.2 L (12.0-15.0) g/dL Hct 33.1 L (37.2-46.3) % Eosinophils # 0.01 L (0.04-0.35) X 10*3/uL Potassium 3.4 L (3.5-5.5) mmol/L BUN 6.1 L (9.0-27.0) mg/dL Creatinine 0.5 L (0.6-1.5) mg/dL Glucose 112 H (70-110) mg/dL Calcium 8.0 L (8.7-10.3) mg/dL Assessment and Plan Assessment: Postoperative day #1 status post MIS L4-S1 posterior lateral decompression and fusion Plan: Pain control, continue current medications DVT prophylaxis, aspirin 81 mg daily Wound care, plan for dressing change tomorrow DC urinary catheter today, monitor for urinary retention LSO brace and walker when ambulating longer distances Medical recommendations appreciated Encourage incentive spirometer Discharge planning: hopeful discharge to home tomorrow Time with Patient: Less than 30
[2024-10-30] MEDS: ASPIRIN 81 MG PO SCH (11:40)
[2024-10-30] MEDS: LEVOTHYROXINE 100 MCG TAB PO SCH (11:57)
[2024-10-30] MEDS: POTASSIUM CHLORIDE ER 20 MEQ TAB.ER PO STA (13:48)
--- NOTE | 2024-10-30 13:49 | P.HPIM ---
History of Present Illness H&P Date: 10/30/24 This is a 54-year-old male medical history significant for rheumatoid arthritis and hypothyroidism, migraines, anxiety. Patient comes in for a scheduled lumbar surgery L4-L5 and L5-S1 lateral interbody fusion with cage placement. Patient is reporting minimal lumbar pain today she is able to get up and ambulate to the bathroom with a walker with a standby assistance from her significant other. Sh e is postoperative day #1. Reporting any shortness of breath. She has been using her incentive spirometer. Her blood work today reveals a white blood cell count of 8.30, sodium of 137, potassium of 3.4, BUN of 6.1 and a creatinine of 0.5. Afebrile and saturating well on room air. She is slightly hypotensive with blood pressure in the 90s systolic we will continue to hydrate this patient with normal saline at 75 mL/h postoperatively. REVIEW OF SYSTEMS: CONSTITUTIONAL: No fever, no malaise, no fatigue. HEENT: No recent visual problems or hearing problems. Denied any sore throat. CARDIOVASCULAR: No chest pain, orthopnea, PND, no palpitations, no syncope. PULMONARY: No shortness of breath, no cough, no hemoptysis. GASTROINTESTINAL: No diarrhea, no nausea, no vomiting, no abdominal pain. NEUROLOGICAL: No headaches, no weakness, no numbness. HEMATOLOGICAL: Denies any bleeding or petechiae. GENITOURINARY: Denies any burning micturition, frequency, or urgency. MUSCULOSKELETAL/RHEUMATOLOGICAL: Denies any joint pain, swelling, or any muscle pain. ENDOCRINE: Denies any polyuria or polydipsia. The rest of the 14-point review of systems is negative. PHYSICAL EXAMINATION: GENERAL: The patient is alert and oriented x3, not in any acute distress. Well developed, well nourished. HEENT: Pupils are round and equally reacting to light. EOMI. No scleral icterus. No conjunctival pallor. Normocephalic, atraumatic. No pharyngeal erythema. No thyromegaly. CARDIOVASCULAR: S1 and S2 present. No murmurs, rubs, or gallops. PULMONARY: Chest is clear to auscultation, no wheezing or crackles. ABDOMEN: Soft, nontender, nondistended, normoactive bowel sounds. No palpable organomegaly. MUSCULOSKELETAL: No joint swelling or deformity. EXTREMITIES: No cyanosis, clubbing, or pedal edema. NEUROLOGICAL: Gross neurological examination did not reveal any focal deficits. SKIN: No rashes. Assessment and Plan Postoperative L4-S1 posterior lateral decompression and fusion pending LSO brace History hypothyroidism resumed on Synthroid patient wants to use her home medications denies improvement History of arthritis History of migraines and symptoms of anxiety Hypokalemia supplemented with oral potassium repeat blood work tomorrow GI prophylaxis DVT prophylaxis as per primary Full code The impression and plan of care has been dictated by Nakita Faria, Nurse Practitioner as directed. Dr. Elliott MD I have performed a history and physical examination and medical decision making of this patient, discussed the same with the dictator, and agree with the dictators assessment and plan as written, documented as a scribe. Based on total visit time, I have performed more than 50% of this visit. Past Medical History Past Medical History: Rheumatoid Arthritis (RA), Thyroid Disorder Additional Past Medical History / Comment(s): MIGRAINES. History of Any Multi-Drug Resistant Organisms: None Reported Past Surgical History: Uterine Ablation Additional Past Surgical History / Comment(s): BILATERAL EYELID SURGERY, LAPAROSCOPY WITH CYST REMOVED, PAIN CLINIC PROCEDURE. Past Anesthesia/Blood Transfusion Reactions: No Reported Reaction Past Psychological History: Anxiety Additional Psychological History / Comment(s): UNDER CONTROL AT THIS TIME Smoking Status: Former smoker Past Alcohol Use History: None Reported Additional Past Alcohol Use History / Comment(s): QUIT SMOKING IN 2012. Past Drug Use History: Marijuana Additional Drug Use History / Comment(s): Hx rare Marijuana use for migrainES, ARTHRITIS,-LAST USED ABOUT 6 WEEKS AGO - Past Family History Father Family Medical History: Cancer Medications and Allergies Home Medications Medication Instructions Recorded Confirmed Type Abatacept [Orencia Clickject] 125 mg SQ FR 10/25/24 10/29/24 History Levothyroxine Sodium [Tirosint] 100 mcg PO DAILY 10/25/24 10/29/24 History Progesterone, Micronized 200 mg PO HS 10/25/24 10/29/24 History [Progesterone] estradioL 2 mg PO HS 10/25/24 10/29/24 History Cetirizine HCl [Zyrtec] 5 mg PO HS 10/29/24 10/29/24 History Cholecalciferol [Vitamin D3 (125 125 mcg PO DAILY 10/29/24 10/29/24 History Mcg = 5000 Iu)] Fish Oil/Dha/Epa [Fish Oil 1,200 2 each PO DAILY 10/29/24 10/29/24 History mg Fish Oil] Magnesium Gluconate [Magonate] 240 mg PO DAILY 10/29/24 10/29/24 History Multivitamins, Thera [Multivitamin 1 tab PO WEEKLY 10/29/24 10/29/24 History (formulary)] Allergies Allergy/AdvReac Type Severity Reaction Status Date / Time acetaminophen [From Vicodin] Allergy Anaphylaxis Verified 10/25/24 15:31 gluten Allergy FACIAL Verified 10/25/24 15:31 SWELLING hydrocodone [From Vicodin] Allergy Anaphylaxis Verified 10/25/24 15:31 ibuprofen Allergy FACIAL Verified 10/25/24 15:31 SWELLING NSAIDS (Non-Steroidal Allergy Swelling Verified 10/29/24 08:28 Anti-Inflamma CHLORINE BLEACH Allergy Swelling Uncoded 10/25/24 15:32 Physical Exam Vitals: Vital Signs Temp Pulse Pulse Resp BP Pulse Ox 10/30/24 07:56 98.8 F 86 18 96/61 96 10/30/24 00:46 98.3 F 88 17 94/57 97 10/29/24 19:32 98.2 F 89 17 97/59 99 10/29/24 17:55 82 106/69 10/29/24 17:41 77 97/66 10/29/24 17:25 89 107/73 10/29/24 17:10 86 96/64 10/29/24 16:57 85 102/63 10/29/24 16:42 90 104/64 10/29/24 16:26 89 98/61 10/29/24 15:30 86 16 100/56 96 10/29/24 15:15 82 18 98/57 99 10/29/24 14:57 83 16 99/58 100 10/29/24 14:42 80 16 97/54 100 10/29/24 14:27 89 16 103/57 100 10/29/24 14:12 95 16 99/63 95 Intake and Output 10/29/24 10/30/24 10/30/24 22:59 06:59 14:59 Intake Total 325 Output Total 1100 650 700 Balance -913 -492 -700 Intake: IV 325 Output: Urine 1100 650 700 Other: # Voids 1 Results CBC & Chem 7: 11/30/24 02:38 10/30/24 02:38 Labs: Abnormal Lab Results - Last 24 Hours (Table) 10/30/24 10/30/24 Range/Units 02:38 02:38 RBC 3.72 L (4.10-5.20) X 10*6/uL Hgb 11.2 L (12.0-15.0) g/dL Hct 33.1 L (37.2-46.3) % Eosinophils # 0.01 L (0.04-0.35) X 10*3/uL Potassium 3.4 L (3.5-5.5) mmol/L BUN 6.1 L (9.0-27.0) mg/dL Creatinine 0.5 L (0.6-1.5) mg/dL Glucose 112 H (70-110) mg/dL Calcium 8.0 L (8.7-10.3) mg/dL Thrombosis Risk Factor Assmnt - Choose All That Apply Any of the Below Risk Factors Present?: Yes Each Factor Represents 1 point: Age 41-60 years, Obesity (BMI >25), Oral contraceptives or hormone replacement therapy Each Risk Factor Represents 2 Points: Laparoscopic surgery, Major surgery Thrombosis Risk Factor Assessment Total Risk Factor Score: 7 Thrombosis Risk Factor Assessment Level: High Risk Assessment and Plan Time with Patient: Less than 30
[2024-10-30] MEDS: LORATADINE 10 MG TAB PO SCH (21:17)
[2024-10-31 07:17] VITALS: BP 90/60; PULSE 90; RESP 17; TEMP 98.4
[2024-10-31] MEDS: CHOLECALCIFEROL 125 MCG (5000 IU) TABLET PO SCH (08:17)
--- NOTE | 2024-10-31 11:49 | P.PN ---
Subjective Progress Note Date: 10/31/24 Principal diagnosis: Status post MIS L4-S1 posterior lateral decompression and fusion Patient evaluated at bedside, is also present. She is sitting up in the chair. Pain is well-controlled. urinary catheter was removed yesterday, she is urinating with no issues. She admits to some mild discomfort in the right buttock. Denies headaches, lightheadedness, chest pain or shortness of breath Objective - Vital Signs Vital signs: Vital Signs Temp 98.4 F 10/31/24 07:17 Pulse 90 10/31/24 07:17 Resp 17 10/31/24 07:17 BP 90/60 10/31/24 07:17 Pulse Ox 97 10/31/24 07:17 FiO2 Intake & Output 10/30/24 10/31/24 10/31/24 18:59 06:59 18:59 Output Total 700 Balance -700 Output: Urine 700 Other: Voiding Method Toilet # Voids 1 2 - Exam Gen: AOx3, NAD VSS stable at this time Integument: Postop dressing removed, deepak and sutures in good position and condition. Palpation: Mild tenderness with palpation of the lower lumbar spine ROM: Full range of motion in all major muscle groups of the bilateral upper and lower extremities Sensory Exam: Senory exam to light touch is intact C5-T1 Senosry exam to light touch is intact L2-S1 Motor: 4/5 strength appreciated the bilateral lower extremities with hip flexion, knee extension, knee flexion, plantarflexion, dorsiflexion, EHL, FHL Reflexes: 2/4 in all UE and LE Negative Sara's bilaterally Negative clonus bilaterally - Labs CBC & Chem 7: 10/30/24 02:38 10/30/24 02:38 Labs: Abnormal Lab Results - Last 24 Hours (Table) 10/30/24 Range/Units 02:38 Magnesium 1.4 L (1.5-2.4) mg/dL Assessment and Plan Assessment: Postoperative day #2 status post MIS L4-S1 posterior lateral decompression and fusion Plan: Pain control, Plan for discharge home on gabapentin 300 mg, Toradol 15 m g,Flexeril 5 mg DVT prophylaxis, aspirin 81 mg daily Wound care, new dressings applied today. We did discuss showering and bandage instructions for home LSO brace and walker when ambulating longer distances Medical recommendations appreciated Encourage incentive spirometer Discharge planning: stable for discharge home today Time with Patient: Less than 30
--- NOTE | 2024-10-31 14:32 | P.PN ---
Subjective Progress Note Date: 10/31/24 This is a 54-year-old male medical history significant for rheumatoid arthritis and hypothyroidism, migraines, anxiety. Patient comes in for a scheduled lumbar surgery L4-L5 and L5-S1 lateral interbody fusion with cage placement. Patient is reporting minimal lumbar pain today she is able to get up and ambulate to the bathroom with a walker with a standby assistance from her significant other. She is postoperative day #1. Reporting any shortness of breath. She has been using her incentive spirometer. Her blood work today reveals a white blood cell count of 8.30, sodium of 137, potassium of 3.4, BUN of 6.1 and a creatinine of 0.5. Afebrile and saturating well on room air. She is slightly hypotensive with blood pressure in the 90s systolic we will continue to hydrate this patient with normal saline at 75 mL/h postoperatively. 10/31/2024 Patient is doing well postoperative day #1 lumbar surgery. Pain is managed. No acute events overnight. She is cleared for medically for discharge home continue all same home medications. REVIEW OF SYSTEMS: CONSTITUTIONAL: No fever, no malaise, no fatigue. HEENT: No recent visual problems or hearing problems. Denied any sore throat. CARDIOVASCULAR: No chest pain, orthopnea, PND, no palpitations, no syncope. PULMONARY: No shortness of breath, no cough, no hemoptysis. GASTROINTESTINAL: No diarrhea, no nausea, no vomiting, no abdominal pain. NEUROLOGICAL: No headaches, no weakness, no numbness. PHYSICAL EXAMINATION: GENERAL: The patient is alert and oriented x3, not in any acute distress. Well developed, well nourished. HEENT: Pupils are round and equally reacting to light. EOMI. No scleral icterus. No conjunctival pallor. Normocephalic, atraumatic. No pharyngeal erythema. No thyromegaly. CARDIOVASCULAR: S1 and S2 present. No murmurs, rubs, or gallops. PULMONARY: Chest is clear to auscultation, no wheezing or crackles. ABDOMEN: Soft, nontender, nondistended, normoactive bowel sounds. No palpable organomegaly. MUSCULOSKELETAL: No joint swelling or deformity. EXTREMITIES: No cyanosis, clubbing, or pedal edema. NEUROLOGICAL: Gross neurological examination did not reveal any focal deficits. SKIN: No rashes. Assessment and Plan Postoperative L4-S1 posterior lateral decompression and fusion pending LSO brace History hypothyroidism resumed on Synthroid patient wants to use her home medications denies improvement History of arthritis History of migraines and symptoms of anxiety Hypokalemia supplemented with oral potassium repeat blood work tomorrow GI prophylaxis DVT prophylaxis as per primary Full code The impression and plan of care has been dictated by Nakita Faria, Nurse Practitioner as directed. Dr. Elliott MD I have performed a history and physical examination and medical decision making of this patient, discussed the same with the dictator, and agree with the dictators assessment and plan as written, documented as a scribe. Based on total visit time, I have performed more than 50% of this visit. Objective - Vital Signs Vital signs: Vital Signs Temp 98.4 F 10/31/24 07:17 Pulse 90 10/31/24 07:17 Resp 17 10/31/24 07:17 BP 90/60 10/31/24 07:17 Pulse Ox 97 10/31/24 07:17 FiO2 Intake & Output 10/30/24 10/31/24 10/31/24 18:59 06:59 18:59 Output Total 700 Balance -700 Output: Urine 700 Other: Voiding Method Toilet # Voids 1 2 - Labs CBC & Chem 7: 10/30/24 02:38 10/30/24 02:38 Labs: Abnormal Lab Results - Last 24 Hours (Table) 10/30/24 Range/Units 02:38 Magnesium 1.4 L (1.5-2.4) mg/dL Assessment and Plan Time with Patient: Less than 30
[2024-11-06] MEDS ORDERED: MULTIVITAMINS, THERA 1 EACH TAB PO SCH (09:00)
== END 2024-10-31 12:53 | disposition home health service (06) ==
LOC: OR 07:51 → 4SSUR 14:10 → OR 10-31 12:53
PROVIDERS: ATTEND Orthopaedic Surgery
DX: M47.816 Spondylosis without myelopathy or radiculopathy, lumbar region (principal); M43.16 Spondylolisthesis, lumbar region; M48.061 Spinal stenosis, lumbar region without neurogenic claudication; E03.9 Hypothyroidism, unspecified; M06.9 Rheumatoid arthritis, unspecified; G43.909 Migraine, unspecified, not intractable, without status migrainosus; Z79.82 Long term (current) use of aspirin; Z79.890 Hormone replacement therapy; Z87.891 Personal history of nicotine dependence; Z88.5 Allergy status to narcotic agent; Z88.6 Allergy status to analgesic agent
CPT/HCPCS: 97161; 80048; 83735; 85025; 72100; 72131; 22633; 20930; 20936; 22853; 22634; 22842; J2250; J3250; J2175; J0690 ×2; J2405 ×2; J1885 ×3; J0665

== ENCOUNTER → 2025-06-15 | Outpatient (CLI) | payer BC ==
--- NOTE | 2025-06-15 10:15 | MM ---
Reason for Exam: Screening (asymptomatic). Last screening mammogram was performed 12 month(s) ago. Patient History: Menarche at age 10. First Full-Term at age 19. Postmenopausal. Hormonal Contraceptives, starting at age 24 for 11 years. Currently using Estrogen and Progesterone. 1997, Cyst Aspiration on the Right side. 1996, Cyst Aspiration on the Right side. Risk Values: Deann 5 year model risk: 1.2%. NCI Lifetime model risk: 7.9%. Prior Study Comparison: 06/02/2023 Bilateral MG 3D screening mammo w/cad, [facility]. 06/07/2024 Bilateral MG 3D screening mammo w/cad, [facility]. 06/11/2024 Left MG 3D work up w/cad , [facility]. Tissue Density: The breasts are heterogeneously dense, which may obscure small masses. Findings: Analyzed By CAD. There is no suspicious group of microcalcifications or new suspicious mass in either breast. Overall Assessment: Benign, BI-RAD 2 Management: Screening Mammogram of both breasts in 1 year. . Patient should continue monthly self-breast exams. A clinical breast exam by your physician is recommended on an annual basis. This exam should not preclude additional follow-up of suspicious palpable abnormalities. Note on Deann scores and lifetime risk: 1. A Deann score greater than 3% is considered moderate risk. If this is the case, consider specialist referral to assess eligibility for a risk reducing agent. 2. If overall lifetime risk for the development of breast cancer is 20% or higher, the patient may qualify for future screening with alternating mammogram and breast MRI. [facility], , 06/15/2025 10:12 AM. Electronically signed and approved by: Jamari Mazariegos M.D. Radiologis
--- NOTE | 2025-06-15 10:47 | US ---
EXAMINATION TYPE: US transvaginal DATE OF EXAM: 06/15/2025 COMPARISON: None CLINICAL INDICATION: Female, 55 years old with history of N95.0 POSTMENOPAUSAL BLEEDING; Hx ablation. Postmenopausal bleeding. TECHNIQUE: Transvaginal (TV). Transvaginal grayscale sonographic images of the pelvis were acquired. Doppler imaging: Not performed. FINDINGS: Date of LMP: Postmenopausal, EXAM MEASUREMENTS: Uterus: 6.8 x 4.2 x 3.1 cm Endometrial Stripe: 0.5 cm Right Ovary: 1.9 x 1.1 x 1.2 cm Left Ovary: 1.7 x 1.0 x 0.7 cm 1. Uterus: Anteverted Heterogenous 2. Endometrium: wnl 3. Right Ovary: appears small in size 4. Left Ovary: appears small in size 5. Bilateral Adnexa: no free fluid 6. Posterior cul-de-sac: no free fluid IMPRESSION: 1. No evidence for acute process. 2. Endometrium within normal limits for thickness. [facility], , 06/15/2025 10:45 AM
== END | disposition home or self-care (01) ==
LOC: RADMAMWWP 09:40
PROVIDERS: ATTEND Obstetrics & Gynecology
DX: Z12.31 Encounter for screening mammogram for malignant neoplasm of breast (principal); R92.333 Mammographic heterogeneous density, bilateral breasts; Z78.0 Asymptomatic menopausal state
CPT/HCPCS: 76830; 77063; 77067